=== PATIENT | female | born 1940 | race Caucasian/White ===

== ENCOUNTER 2016-12-26 13:07 | Emergency (ER) | payer MEDICARE, OTHER ==
[~2016-12-26] VITALS: Ht 160 cm; Wt 3.5 kg
[~2016-12-26 13:07] MED LIST: ASPI-664 PO; ATEN50TA PO; ATOR10TA65 PO; CHOL100062 PO; HYDR-3671 PO; LEVO25TA53 PO; VALS320T11 PO
[2016-12-26 13:12] VITALS: Ht 160 cm; Wt 3.5 kg
[2016-12-26] MEDS ORDERED: ALBUTEROL 0.083% (NEB) 2.5 MG/3 ML AMP HHN STA (15:16)
[2016-12-26] MEDS ORDERED: DEXAMETHASONE 4 MG TAB PO ONE (15:30)
--- NOTE | 2016-12-26 16:24 | RADRPT ---
PROCEDURE: XR Chest 1 View. CLINICAL INDICATION: Shortness of breath TECHNIQUE: AP view of the chest was obtained. COMPARISON: August 30, 2016 FINDINGS: The heart size is within normal limits. Calcified atherosclerosis is noted in the aorta. Lungs are hyperexpanded. No consolidations are identified. No pneumothorax is seen. Osseous structures are i ntact. IMPRESSION: Calcified atherosclerosis in the aorta. Hyperexpanded, clear lungs. RPTAT: AA .Cj Barr MD, Date Time Electronically viewed and signed by .Cj Barr MD, MD on 12/26/2016 16:24 .P/
[2016-12-26] MEDS ORDERED: ALBU18HF INHALATION (16:45)
[2016-12-26] MEDS ORDERED: AZIT250T94 PO (16:45)
[2016-12-26] MEDS ORDERED: GENT5DRO28 BOTH EYES (16:47)
--- NOTE | 2016-12-26 16:49 | ERD ---
ER Documentation Chief Complaint Date/Time DATE: 12/26/16 TIME: 16:47 Chief Complaint COUGH, SORE THROAT X 4 DAYS, BILATERAL EYE IRRITATION X 2 DAYS HPI 76-year-old female presents with a productive cough and sore throat for 4 days. She also has bilateral eye redness or discharge. She has a history of intermittent reactive airway disease. She denies any chest pain, vomiting, abdominal pain, shortness of breath. ROS All systems reviewed and are negative except as per history of present illness. Medications Home Meds Active Scripts Gentamicin Sulfate* (Gentamicin Sulfate* Ophth) 0.3% - 5 Ml Drops, 1 DROP BOTH EYES Q4 for 7 Days, EA Prov:CLEVELAND WOLFE MD 12/26/16 Albuterol Sulfate* (Ventolin HFA*) 18 Gm Hfa.aer.ad, 2 PUFF INHALATION Q4H, #1 INHALER Prov:CLEVELAND WOLFE MD 12/26/16 Azithromycin* (Zithromax*) 250 Mg Tablet, 250 MG PO .AleahPACK DIRECTED, #6 TAB TAKE 500 MG (2 TABS) THE FIRST DAY THEN 250 MG (1 TAB) DAYS 2-5 Prov:CLEVELAND WOLFE MD 12/26/16 Hydralazine Hcl* (Hydralazine Hcl*) 25 Mg Tab, 25 MG PO TID for 90 Days, TAB Prov:NIKOLE JACK 09/09/16 Reported Medications Valsartan* (Diovan*) 320 Mg Tablet, 320 MG PO DAILY, TAB 08/30/16 Atorvastatin Calcium (Atorvastatin Calcium) 10 Mg Tablet, 10 MG PO QHS, #30 TAB 08/30/16 Aspirin* (Aspirin* EC) 81 Mg Tablet.dr, 81 MG PO DAILY, TAB 08/30/16 Levothyroxine Sodium* (Levothyroxine Sodium*) 25 Mcg Tablet, 25 MCG PO BEFORE BREAKFAST, #30 TAB 08/30/16 Atenolol* (Atenolol*) 50 Mg Tablet, 50 MG PO BID, #60 TAB 08/30/16 Cholecalciferol* (Vitamin D3*) 1,000 Unit Tablet, 1000 UNIT PO DAILY, TAB 08/30/16 Allergies Allergies: Coded Allergies: Penicillins (Unverified Allergy, Intermediate, RASH, 08/30/16) PMhx/Soc History of Surgery: Yes (HYSTERECTOMY) Anesthesia Reaction: No Hx Neurological Disorder: No Hx Respiratory Disorders: Yes (HX PNEUMONIA) Hx Cardiac Disorders: Yes (HYPERTENSION) Hx Psychiatric Problems: No Hx Miscellaneous Medical Probl: No Hx Alcohol Use: No Hx Substance Use: No Hx Tobacco Use: No Physical Exam Vitals Vital Signs Date Time Temp Pulse Resp B/P Pulse Ox O2 Delivery O2 Flow Rate FiO2 12/26/16 16:08 53 18 98 21 12/26/16 13:12 98.4 67 18 183/80 97 Physical Exam Const: [] Alert, [id number]. Head: Atraumatic Eyes: Slight bilateral scleral redness with slight discharge at the medial canthus bilaterally. There is no periorbital swelling or proptosis. ENT: Normal External Ears, Nose and Mouth. TMs and oropharynx normal. Neck: Full range of motion..~ No meningismus. Resp: Clear to auscultation bilaterally. Wheezy cough without significant wheeze at rest no rales or retractions appreciated. Cardio: Regular rate and rhythm, no murmurs Abd: Soft, non tender, non distended. Normal bowel sounds Skin: No petechiae or rashes Back: No midline or flank tenderness Ext: No cyanosis, or edema Neur: Awake and alert Psych: Normal Mood and Affect Results 24 hrs Current Medications Medications (Trade) Dose Ordered Sig/Kaycee Route PRN Reason Start Time Stop Time Status Last Admin Dose Admin Albuterol (Proventil 0.083% (Neb)) 2.5 mg ONCE STAT HHN 12/26/16 15:16 12/26/16 15:18 DC 12/26/16 16:01 Dexamethasone (Decadron) 8 mg ONCE ONCE PO 12/26/16 15:30 12/26/16 15:31 DC 12/26/16 15:54 Procedures/MDM Chest X-ray 1V Interpreted by me: Soft Tissue: No acute abnormalities Bones: No acute abnormalities Mediastinum/Cardiac Silhouette/Lungs: [No acute abnormalities]. Impression- normal 1 view chest x-ray Patient was given albuterol treatment 1 and Decadron 8 mg of mouth. Patient has URI symptoms with mild wheeze. She will treated with Zithromax and Ventolin and gentamicin ophthalmic solution. There is no evidence of hypoxemia , pneumonia, cardiac chest pain, acute abdomen. Patient should return for new or worsening symptoms with primary doctor this week. The patient was stable with no new complaints during the ER course. Clinically, there is no current evidence to suggest meningitis, sepsis, acute abdomen, pneumonia, acute coronary syndrome, pulmonary embolism, or any other emergent condition appearing to require further evaluation or hospitalization. The patient should certainly return for any new or worsening symptoms per the aftercare instructions. They should otherwise follow-up with her primary care doctor for reevaluation this week. Departure Diagnosis: Primary Impression: Cough Condition: Stable Patient Instructions: Bronchitis With Wheezing (Adult) Additional Instructions: X RAY normal hoy. Cheque otro vez con sotomayor doctor primario en el proximo pelayo or regresa para mas o nueva simptomas. CLEVELAND WOLFE MD Dec 26, 2016 16:48
[2016-12-26 17:14] VITALS: BP 182/77; PULSE 59; RESP 16; TEMP 97.7
== END 2016-12-26 17:19 | disposition home or self-care (01) ==
LOC: FTE 13:07
DX: R05 Cough (principal); I10 Essential (primary) hypertension; E11.9 Type 2 diabetes mellitus without complications; J45.901 Unspecified asthma with (acute) exacerbation; Z79.82 Long term (current) use of aspirin
CPT/HCPCS: 71010; 94664

== ENCOUNTER 2017-04-02 10:19 | Emergency (ER) | payer MEDICARE, OTHER ==
[~2017-04-02] VITALS: Ht 157.5 cm; Wt 73.5 kg
[~2017-04-02 10:19] MED LIST changes: +ALBU18HF INHALATION; +AZIT250T94 PO; +GENT5DRO28 BOTH EYES
[2017-04-02 10:24] VITALS: Ht 157.5 cm; Wt 73.5 kg
[2017-04-02] MEDS ORDERED: morphine 4 MG/ML VIAL IV STA (11:07)
[2017-04-02] MEDS ORDERED: ONDANSETRON 4 MG INJ IV STA (11:07)
[2017-04-02] MEDS ORDERED: LABETALOL HCL 20MG INJ IV ONE (11:30)
[2017-04-02] MEDS ORDERED: SOD CHLORIDE 0.9% 500 ML IV ONE (11:30)
[2017-04-02 12:09] LABS: ADD SCAN DIFF NO
[2017-04-02 12:11] LABS: BASOPHIL # 0.1 10^3/ul (0.0-0.1); BASOPHILS % 0.5 % (0.0-2.0); EOSINOPHILS # 1.8 10^3/ul (0.0-0.5); EOSINOPHILS % 13.7 % (0.0-7.0); LYMPHOCYTES # 1.8 10^3/ul (0.8-2.9); LYMPHOCYTES % 13.2 % (15.0-51.0); MEAN CORPUSCULAR HEMOGLOBIN 30.4 pg (29.0-33.0); MEAN CORPUSCULAR HGB CONC 34.2 g/dl (32.0-37.0); MEAN PLATELET VOLUME 12.9 fl (7.4-10.4); MONOCYTE # 1.1 10^3/ul (0.3-0.9); MONOCYTES % 8.4 % (0.0-11.0); NEUTROPHIL # 8.5 10^3/ul (1.6-7.5); PLATELET COUNT 205 10^3/UL (140-415); RED BLOOD COUNT 4.27 10^6/ul (4.20-5.40); RED CELL DISTRIBUTION WIDTH 12.5 % (11.5-14.5); WHITE BLOOD COUNT 13.2 10^3/ul (4.8-10.8)
[2017-04-02 12:12] LABS: ADD UMIC NO; UR ASCORBIC ACID NEGATIVE (NEGATIVE); UR BILIRUBIN (Dip) NEGATIVE (NEGATIVE); UR BLOOD (Dip) NEGATIVE (NEGATIVE); UR CLARITY CLEAR (CLEAR); UR COLOR YELLOW (YELLOW); UR GLUCOSE (Dip) NEGATIVE (NEGATIVE); UR KETONES (Dip) NEGATIVE (NEGATIVE); UR LEUKOCYTE ESTERASE (Dip) NEGATIVE Leu/ul (NEGATIVE); UR NITRITE (Dip) NEGATIVE (NEGATIVE); UR SPECIFIC GRAVITY (Dip) 1.013 (1.003-1.030); UR TOTAL PROTEIN (Dip) NEGATIVE (NEGATIVE); UR UROBILINOGEN (Dip) NEGATIVE (NEGATIVE)
--- NOTE | 2017-04-02 12:32 | RADRPT ---
PROCEDURE: CT Abdomen and Pelvis without intravenous contrast. CLINICAL INDICATION: Left abdominal pain . TECHNIQUE: CT scan of the abdomen and pelvis without intravenous contrast was performed on a multi -slice CT scanner. Coronal and sagittal reformatted images were obtained from the axial source image s. Images were reviewed on a high-resolution PACS workstation. Total DLP = 808.7 mGy-cm. CTDIvol = 14.5 mGy. One or more of the following dose reduction techniques were used: Automated exposure control. Adjustment of the mA and/or kV according to patient size. Use of iterative reconstruction technique. COMPARISON: 02/10/2016 FINDINGS: CT abdomen and pelvis: The lung bases clear of infiltrates or effusions. There is focal scarring or atelectasis seen in th e left lingula unchanged.. The heart size is normal in size. The liver is normal in size and densi ty without focal mass or intrahepatic biliary dilatation. The spleen is normal in size and homogene ous in density. The pancreas as visualized is normal. The gallbladder shows no evidence of stone s or distension . The adrenal glands are normal. The kidneys are symmetrically unremarkable. No u rolithiasis, obstructive uropathy, or solid mass lesion is seen. The stomach is partially collapsed, but is grossly unremarkable. The small bowels are unremarkable. The colon and rectum shows extensive diverticulosis along the left and sigmoid colon. There is foca l brandyn colonic inflammation and stranding seen in the mid left colon consistent with diverticulitis. . There is no evidence of extraluminal gas or fluid collection. There is no evidence of appendicitis .. The uterus has been removed.. The bladder is normal. There is no abdominal or pelvic adenopathy, free fluid, free air, mass or mesenteric inflammation. The aorta is normal in caliber with calcific atherosclerosis . The osseous structures showing degen erative enthesopathy of the spine. No osteolytic or osteoblastic lesions are identified. The soft t issues are within normal limits. Lack of IV and oral contrast limits sensitivity of exam. IMPRESSION: 1. Acute diverticulitis at the mid left colon. No evidence of extraluminal gas or fluid collection . RPTAT: HJPL .Rodrick Greenfield MD, MD Date Time Electronically viewed and signed by .Rodrick Greenfield MD, MD on 04/02/2017 12:32 .L/
[2017-04-02 12:33] LABS: INR 1.06; PROTIME 13.8 Sec (12.2-14.2); PT RATIO 1.1
[2017-04-02 12:34] LABS: PARTIAL THROMBOPLASTIN TIME 29.2 Sec (25.0-35.0)
[2017-04-02 12:37] LABS: ALANINE AMINOTRANSFERASE 22 IU/L (13-69); ALBUMIN 4.9 g/dl (3.3-4.9); ALBUMIN/GLOBULIN RATIO 1.81; ALKALINE PHOSPHATASE 91 IU/L (42-121); ANION GAP 22 (8-16); ASPARTATE AMINO TRANSFERASE 26 IU/L (15-46); BILIRUBIN,INDIRECT 0.6 mg/dl (0-1.1); BILIRUBIN,TOTAL 0.6 mg/dl (0.2-1.3); BLOOD UREA NITROGEN 12 mg/dl (7-20); CALCIUM 9.7 mg/dl (8.4-10.2); CARBON DIOXIDE 26 mmol/L (21-31); CHLORIDE 94 mmol/L (97-110); CREATININE 0.82 mg/dl (0.44-1.00); GLUCOSE 131 mg/dl (70-220); POTASSIUM 4.2 mmol/L (3.5-5.1); SODIUM 138 mmol/L (135-144); TOTAL PROTEIN 7.6 g/dl (6.1-8.1)
[2017-04-02 13:00] LABS: TROPONIN-I < 0.012 ng/ml (0.00-0.12)
[2017-04-02] MEDS ORDERED: metroNIDAZOLE 500 MG/NS (PMX) 100 ML IVPB ONE (14:00)
[2017-04-02] MEDS ORDERED: CEFTRIAXONE 1 GM/50 ML (PMX) 50 ML IVPB ONE (14:00)
[2017-04-02] MEDS ORDERED: KETOROLAC 15 MG INJ IV STA (15:01)
[2017-04-02] MEDS ORDERED: METOCLOPRAMIDE 10 MG INJ IV ONE (15:30)
[2017-04-02] MEDS ORDERED: morphine 10 MG INJ IV ONE (15:30)
[2017-04-02 15:32] VITALS: BP 142/53; PULSE 62; RESP 18
[2017-04-02] MEDS ORDERED: NAPR-685 PO (16:49)
[2017-04-02] MEDS ORDERED: CIPR500T4 PO (16:49)
[2017-04-02] MEDS ORDERED: HYDR-902 PO (16:49)
[2017-04-02] MEDS ORDERED: METR500T PO (16:49)
[2017-04-02] MEDS ORDERED: METO10TA92 PO (16:49)
[2017-04-02] MEDS ORDERED: ONDA4TAB14 PO (16:49)
[2017-04-02] MEDS ORDERED: POLY17PO6 PO (16:50)
--- NOTE | 2017-04-02 16:59 | ERD ---
ER Documentation Chief Complaint Date/Time DATE: 04/02/17 TIME: 16:54 Chief Complaint ABDOMINAL PAIN WITH HIGH BLOOD PRESSURE HPI 76-year-old female with abdominal pain that is left lower quadrant. She is also had nausea with no vomiting. She denies fever and chills. States that she has had diverticulitis before. Also states that she has had high blood pressure that she thinks is from the pain. No chest pain or shortness of breath. ROS All systems reviewed and are negative except as per history of present illness. Medications Home Meds Active Scripts Polyethylene Glycol* (Miralax*) 17 Gm Powd.pack, 17 GM PO DAILY for CONSTIPATION , #7 Prov:AILINWES 04/02/17 Metoclopramide* (Reglan*) 10 Mg Tablet, 10 MG PO Q6H Y for NAUSEA AND OR VOMITING, #10 TAB Prov:AILINWES 04/02/17 Ondansetron (Ondansetron Odt) 4 Mg Tab.rapdis, 4 MG PO Q6H Y for NAUSEA AND/OR VOMITING, #10 TAB Prov:AILINWES 04/02/17 Naproxen* (Naproxen*) 375 Mg Tablet, 375 MG PO BID Y for PAIN, #10 TAB Prov:AILINWES 04/02/17 Hydrocodone/Acetaminophen ([place] 10-325 Tablet) 1 Each Tablet, 1 EACH PO Q6, # 20 TAB Prov:AILINEWS 04/02/17 Metronidazole* (Flagyl*) 500 Mg Tablet, 500 MG PO TID for 14 Days, TAB Prov:WES PARISI DO 04/02/17 Ciprofloxacin Hcl* (Ciprofloxacin Hcl*) 500 Mg Tablet, 500 MG PO BID for 14 Days , TAB Prov:AILINWES 04/02/17 Gentamicin Sulfate* (Gentamicin Sulfate* Ophth) 0.3% - 5 Ml Drops, 1 DROP BOTH EYES Q4 for 7 Days, EA Prov:CLEVELAND WOLFE MD 12/26/16 Albuterol Sulfate* (Ventolin HFA*) 18 Gm Hfa.aer.ad, 2 PUFF INHALATION Q4H, #1 INHALER Prov:CLEVELAND WOLFE MD 12/26/16 Azithromycin* (Zithromax*) 250 Mg Tablet, 250 MG PO .ALEXANDRA DIRECTED, #6 TAB TAKE 500 MG (2 TABS) THE FIRST DAY THEN 250 MG (1 TAB) DAYS 2-5 Prov:CLEVELAND WOLFE MD 12/26/16 Hydralazine Hcl* (Hydralazine Hcl*) 25 Mg Tab, 25 MG PO TID for 90 Days, TAB Prov:VINOD JACKBIR 09/09/16 Reported Medications Valsartan* (Diovan*) 320 Mg Tablet, 320 MG PO DAILY, TAB 08/30/16 Atorvastatin Calcium (Atorvastatin Calcium) 10 Mg Tablet, 10 MG PO QHS, #30 TAB 08/30/16 Aspirin* (Aspirin* EC) 81 Mg Tablet.dr, 81 MG PO DAILY, TAB 08/30/16 Levothyroxine Sodium* (Levothyroxine Sodium*) 25 Mcg Tablet, 25 MCG PO BEFORE BREAKFAST, #30 TAB 08/30/16 Atenolol* (Atenolol*) 50 Mg Tablet, 50 MG PO BID, #60 TAB 08/30/16 Cholecalciferol* (Vitamin D3*) 1,000 Unit Tablet, 1000 UNIT PO DAILY, TAB 08/30/16 Allergies Allergies: Coded Allergies: Penicillins (Unverified Allergy, Intermediate, RASH, 08/30/16) PMhx/Soc History of Surgery: Yes (HYSTERECTOMY) Anesthesia Reaction: No Hx Neurological Disorder: No Hx Respiratory Disorders: Yes (HX PNEUMONIA) Hx Cardiac Disorders: Yes (HYPERTENSION) Hx Psychiatric Problems: No Hx Miscellaneous Medical Probl: No Hx Alcohol Use: No Hx Substance Use: No Hx Tobacco Use: No Smoking Status: Never smoker Physical Exam Vitals Vital Signs Date Time Temp Pulse Resp B/P Pulse Ox O2 Delivery O2 Flow Rate FiO2 04/02/17 15:32 62 18 142/53 96 Room Air 04/02/17 11:47 62 20 155/63 Room Air 04/02/17 10:24 98.6 67 18 210/83 97 Physical Exam Const: [] Mild distress Head: Atraumatic Eyes: Normal Conjunctiva ENT: Normal External Ears, Nose and Mouth. Neck: Full range of motion..~ No meningismus. Resp: Clear to auscultation bilaterally Cardio: Regular rate and rhythm, no murmurs Abd: Soft, moderate tenderness only in the left lower quadrant very laterally , no guarding rebound, non distended. Normal bowel sounds Skin: No petechiae or rashes Back: No midline or flank tenderness Ext: No cyanosis, or edema Neur: Awake and alert and oriented 3, no focal deficits Psych: Normal Mood and Affect Result Diagram: 04/02/17 1145 04/02/17 1145 Results 24 hrs Laboratory Tests Test 04/02/17 11:45 White Blood Count 13.210^3/ul Red Blood Count 4.2710^6/ul Hemoglobin 13.0g/dl Hematocrit 38.0% Mean Corpuscular Volume 89.0fl Mean Corpuscular Hemoglobin 30.4pg Mean Corpuscular Hemoglobin Concent 34.2g/dl Red Cell Distribution Width 12.5% Platelet Count 25480^3/UL Mean Platelet Volume 12.9fl Neutrophils % 64.0% Lymphocytes % 13.2% Monocytes % 8.4% Eosinophils % 13.7% Basophils % 0.5% Nucleated Red Blood Cells % 0.0/100WBC Neutrophils # 8.510^3/ul Lymphocytes # 1.810^3/ul Monocytes # 1.110^3/ul Eosinophils # 1.810^3/ul Basophils # 0.110^3/ul Nucleated Red Blood Cells # 0.010^3/ul Prothrombin Time 13.8Sec Prothrombin Time Ratio 1.1 INR International Normalized Ratio 1.06 Activated Partial Thromboplast Time 29.2Sec Urine Color YELLOW Urine Clarity CLEAR Urine pH 6.0 Urine Specific Malcolm 1.013 Urine Ketones NEGATIVEmg/dL Urine Nitrite NEGATIVEmg/dL Urine Bilirubin NEGATIVEmg/dL Urine Urobilinogen NEGATIVEmg/dL Urine Leukocyte Esterase NEGATIVELeu/ul Urine Hemoglobin NEGATIVEmg/dL Urine Glucose NEGATIVEmg/dL Urine Total Protein NEGATIVEmg/dl Sodium Level 138mmol/L Potassium Level 4.2mmol/L Chloride Level 94mmol/L Carbon Dioxide Level 26mmol/L Anion Gap 22 Blood Urea Nitrogen 12mg/dl Creatinine 0.82mg/dl Glucose Level 131mg/dl Calcium Level 9.7mg/dl Total Bilirubin 0.6mg/dl Direct Bilirubin 0.00mg/dl Indirect Bilirubin 0.6mg/dl Aspartate Amino Transf (AST/SGOT) 26IU/L Alanine Aminotransferase (ALT/SGPT) 22IU/L Alkaline Phosphatase 91IU/L Troponin I < 0.012ng/ml Total Protein 7.6g/dl Albumin 4.9g/dl Globulin 2.70g/dl Albumin/Globulin Ratio 1.81 Lipase 42U/L Current Medications Medications (Trade) Dose Ordered Sig/Kaycee Route PRN Reason Start Time Stop Time Status Last Admin Dose Admin Sodium Chloride (NS) 500 ml @ 500 mls/hr Q1H ONCE IV 04/02/17 11:30 04/02/17 12:29 DC 04/02/17 11:40 Morphine Sulfate (morphine) 4 mg ONCE STAT IV 04/02/17 11:07 04/02/17 11:10 DC 04/02/17 11:35 Ondansetron HCl (Zofran Inj) 4 mg ONCE STAT IV 04/02/17 11:07 04/02/17 11:10 DC 04/02/17 11:35 Labetalol HCl 20 mg 20 mg ONCE ONCE IV 04/02/17 11:30 04/02/17 11:31 DC Ceftriaxone Sodium 50 ml @ 100 mls/hr ONCE ONCE IVPB 04/02/17 14:00 04/02/17 14:29 DC 04/02/17 15:15 Metronidazole (Flagyl 500 Mg (Pmx)) 100 ml @ 100 mls/hr ONCE ONCE IVPB 04/02/17 14:00 04/02/17 14:59 DC 04/02/17 15:30 Morphine Sulfate (morphine) 6 mg ONCE ONCE IV 04/02/17 15:30 04/02/17 15:31 DC 04/02/17 15:15 Ketorolac Tromethamine (Toradol) 15 mg ONCE STAT IV 04/02/17 15:01 04/02/17 15:02 DC 04/02/17 15:12 Metoclopramide HCl (Reglan) 10 mg ONCE ONCE IV 04/02/17 15:30 04/02/17 15:31 DC 04/02/17 15:30 Procedures/MDM Acute diverticulitis. Patient has no signs of sepsis. She does not want to stay in the hospital. She was given a liter of normal saline as well as Rocephin and Flagyl. Also given morphine for pain then given morphine again with some Toradol. Was given Zofran for nausea which initially resolved her nausea which returned after the morphine and that time point she was given Reglan 10 mg IV which resolved the nausea. Initially very hypertensive. This is only a single reading after single rating her blood pressure decreased and with pain medication decreased even more with no antihypertensives needed in ER. I respect her wishes and discharge her with Cipro and Flagyl. Also discharge with both Zofran and Reglan for nausea. Naproxen and [place] for pain. I am providing with MiraLAX and she said that she has been having trouble having bowel movements on occasion. Return precautions given for any fevers or severe abdominal pain. CT abdomen pelvis interpretation: Acute diverticulitis, no obstruction, no free air, no signs of perforation. No fractures EKG interpretation: Normal sinus rhythm rate of 62, left axis deviation, right bundle branch block, no ST or T-wave changes concerning for acute ischemia. Departure Diagnosis: Primary Impression: Diverticulitis Additional Impressions: Hypertension Acute abdominal pain Condition: Stable Patient Instructions: Diverticulitis Referrals: AIDAN DAWKINS MD (PCP) Additional Instructions: Llame al doctor MAANA y bartolome corey JAMILAH PARA DENTRO DE 1-2 MORRIS.Dgale a la secretaria que nosotros le instruimos hacer esta jamilah.Avise o llame si sotomayor condicin se empeora antes de la jamilah. Regresa aqui si peor o no mejor. WES PARISI DO Apr 02, 2017 16:59
== END 2017-04-02 17:29 | disposition home or self-care (01) ==
LOC: E/R 10:19
DX: K57.32 Diverticulitis of large intestine without perforation or abscess without bleeding (principal); R40.2252 Coma scale, best verbal response, oriented, at arrival to emergency department; I10 Essential (primary) hypertension; R11.0 Nausea; R40.2142 Coma scale, eyes open, spontaneous, at arrival to emergency department; R40.2362 Coma scale, best motor response, obeys commands, at arrival to emergency department; Z79.82 Long term (current) use of aspirin
CPT/HCPCS: 36415; 74176; 80053; 81003; 83690; 84484; 85025; 85610; 85730; 93005; 96361; 96365; 96375; 96376; 99285; J0696; J1885; J2270; J2405; J2765; J7040

== ENCOUNTER 2017-06-30 18:19 | Inpatient (IN) | payer MEDICARE, OTHER ==
[~2017-06-30] VITALS: Ht 157.5 cm; Wt 73.0 kg
[~2017-06-30 18:19] MED LIST changes: +CIPR500T4 PO; +HYDR-902 PO; +METO10TA92 PO; +METR500T PO; +NAPR-685 PO; +ONDA4TAB14 PO; +POLY17PO6 PO
[2017-06-30] MEDS ORDERED: SOD CHLORIDE 0.9% 1,000 ML IV STA (19:57)
[2017-06-30] MEDS ORDERED: ONDANSETRON 4 MG INJ IV STA (19:57)
[2017-06-30] MEDS ORDERED: HYDROmorphONE 1 MG/ML SYG IV STA (19:57)
[2017-06-30 20:18] LABS: ABNORMAL IP MESSAGE 1; HEMATOCRIT 38.7 % (37.0-47.0); HEMOGLOBIN 12.9 g/dl (12.0-16.0); MEAN CORPUSCULAR HEMOGLOBIN 30.2 pg (29.0-33.0); MEAN CORPUSCULAR HGB CONC 33.3 g/dl (32.0-37.0); MEAN CORPUSCULAR VOLUME 90.6 fl (82.0-101.0); MEAN PLATELET VOLUME 11.8 fl (7.4-10.4); PLATELET COUNT 227 10^3/UL (140-415); RED BLOOD COUNT 4.27 10^6/ul (4.20-5.40); RED CELL DISTRIBUTION WIDTH 12.9 % (11.5-14.5); WHITE BLOOD COUNT 10.5 10^3/ul (4.8-10.8)
[2017-06-30 20:25] LABS: ADD UMIC YES; UR ASCORBIC ACID NEGATIVE (NEGATIVE); UR BACTERIA FEW /HPF (NONE SEEN); UR BILIRUBIN (Dip) NEGATIVE (NEGATIVE); UR BLOOD (Dip) NEGATIVE (NEGATIVE); UR CLARITY CLEAR (CLEAR); UR COLOR YELLOW (YELLOW); UR GLUCOSE (Dip) NEGATIVE (NEGATIVE); UR KETONES (Dip) NEGATIVE (NEGATIVE); UR LEUKOCYTE ESTERASE (Dip) TRACE Leu/ul (NEGATIVE); UR NITRITE (Dip) NEGATIVE (NEGATIVE); UR RBC 0 /HPF (0-5); UR SPECIFIC GRAVITY (Dip) 1.011 (1.003-1.030); UR TOTAL PROTEIN (Dip) NEGATIVE (NEGATIVE); UR UROBILINOGEN (Dip) NEGATIVE (NEGATIVE)
[2017-06-30 20:26] LABS: POSITIVE DIFF @See below
[2017-06-30 20:35] LABS: ALBUMIN 4.6 g/dl (3.3-4.9); ALBUMIN/GLOBULIN RATIO 1.35; BILIRUBIN,INDIRECT 0.3 mg/dl (0-1.1); BILIRUBIN,TOTAL 0.3 mg/dl (0.2-1.3); CALCIUM 9.5 mg/dl (8.4-10.2); CREATININE 0.94 mg/dl (0.44-1.00)
[2017-06-30] MEDS ORDERED: METOCLOPRAMIDE 10 MG INJ IV ONE (21:30)
--- NOTE | 2017-06-30 21:35 | ERA ---
ER Documentation Chief Complaint Date/Time DATE: 06/30/17 TIME: 21:31 Chief Complaint Complains of pelvic pain x 3 days HPI This is a 77-year-old female who complains of some left lower quadrant pain described as sharp over the past 4 days. She is intermittent sharp stabbing pain in the left flank and left lower quadrant. No hematuria or dysuria but says the pain is much worse when she tries to void. No fever no chest pain shortness of breath. No symptoms of this in the past ROS All systems reviewed and are negative except as per history of present illness. Medications Home Meds Active Scripts Hydrocodone/Acetaminophen ([place] 5-325 Tablet) 1 Each Tablet, 1 TAB PO Q6H Y for PAIN, #20 TAB Prov:FERCHO BERNARD DO 06/30/17 Metronidazole* (Flagyl*) 500 Mg Tablet, 500 MG PO TID for 10 Days, TAB Prov:FERCHO BERNARD DO 06/30/17 Ciprofloxacin Hcl* (Ciprofloxacin Hcl*) 500 Mg Tablet, 500 MG PO BID for 10 Days , TAB Prov:FERCHO BERNARD DO 06/30/17 Ondansetron (Ondansetron Odt) 4 Mg Tab.rapdis, 4 MG PO Q6H Y for NAUSEA AND/OR VOMITING, #10 TAB Prov:FERCHO BERNARD DO 06/30/17 Polyethylene Glycol* (Miralax*) 17 Gm Powd.pack, 17 GM PO DAILY for CONSTIPATION , #7 Prov:WES PARISI DO 04/02/17 Metoclopramide* (Reglan*) 10 Mg Tablet, 10 MG PO Q6H Y for NAUSEA AND OR VOMITING, #10 TAB Prov:WES PARISI DO 04/02/17 Ondansetron (Ondansetron Odt) 4 Mg Tab.rapdis, 4 MG PO Q6H Y for NAUSEA AND/OR VOMITING, #10 TAB Prov:WES PARISI DO 04/02/17 Naproxen* (Naproxen*) 375 Mg Tablet, 375 MG PO BID Y for PAIN, #10 TAB Prov:WES PARISI DO 04/02/17 Hydrocodone/Acetaminophen ([place] 10-325 Tablet) 1 Each Tablet, 1 EACH PO Q6, # 20 TAB Prov:WES PARISI DO 04/02/17 Metronidazole* (Flagyl*) 500 Mg Tablet, 500 MG PO TID for 14 Days, TAB Prov:WES PARISI DO 04/02/17 Ciprofloxacin Hcl* (Ciprofloxacin Hcl*) 500 Mg Tablet, 500 MG PO BID for 14 Days , TAB Prov:WES PARISI DO 04/02/17 Gentamicin Sulfate* (Gentamicin Sulfate* Ophth) 0.3% - 5 Ml Drops, 1 DROP BOTH EYES Q4 for 7 Days, EA Prov:CLEVELAND WOLFE MD 12/26/16 Albuterol Sulfate* (Ventolin HFA*) 18 Gm Hfa.aer.ad, 2 PUFF INHALATION Q4H, #1 INHALER Prov:CLEVELAND WOLFE MD 12/26/16 Azithromycin* (Zithromax*) 250 Mg Tablet, 250 MG PO .ZPACK DIRECTED, #6 TAB TAKE 500 MG (2 TABS) THE FIRST DAY THEN 250 MG (1 TAB) DAYS 2-5 Prov:CLEVELAND WOLFE MD 12/26/16 Hydralazine Hcl* (Hydralazine Hcl*) 25 Mg Tab, 25 MG PO TID for 90 Days, TAB Prov:NIKOLE JACK 09/09/16 Reported Medications Valsartan* (Diovan*) 320 Mg Tablet, 320 MG PO DAILY, TAB 08/30/16 Atorvastatin Calcium (Atorvastatin Calcium) 10 Mg Tablet, 10 MG PO QHS, #30 TAB 08/30/16 Aspirin* (Aspirin* EC) 81 Mg Tablet.dr, 81 MG PO DAILY, TAB 08/30/16 Levothyroxine Sodium* (Levothyroxine Sodium*) 25 Mcg Tablet, 25 MCG PO BEFORE BREAKFAST, #30 TAB 08/30/16 Atenolol* (Atenolol*) 50 Mg Tablet, 50 MG PO BID, #60 TAB 08/30/16 Cholecalciferol* (Vitamin D3*) 1,000 Unit Tablet, 1000 UNIT PO DAILY, TAB 08/30/16 Allergies Allergies: Coded Allergies: Penicillins (Unverified Allergy, Intermediate, RASH, 08/30/16) PMhx/Soc History of Surgery: Yes (Hysterectomy) Anesthesia Reaction: No Hx Neurological Disorder: No Hx Respiratory Disorders: Yes (PNA) Hx Cardiac Disorders: Yes (HTN) Hx Psychiatric Problems: No Hx Miscellaneous Medical Probl: Yes (DM,Hypothyroidism) Hx Alcohol Use: No Hx Substance Use: No Hx Tobacco Use: No Smoking Status: Never smoker FmHx Family History: No coronary disease Physical Exam Vitals Vital Signs Date Time Temp Pulse Resp B/P Pulse Ox O2 Delivery O2 Flow Rate FiO2 06/30/17 21:44 98.1 100 20 153/79 97 Room Air 06/30/17 20:00 98.1 60 20 153/62 100 Room Air 06/30/17 18:54 189/76 06/30/17 18:28 98.1 66 20 190/76 95 Physical Exam Const: Well-developed, well-nourished Head: Atraumatic, normocephalic Eyes: Normal Conjunctiva, PERRLA, EOMI, normal sclera, no nystagmus ENT: Normal External Ears, Nose and Mouth, moist mucus membranes. Neck: Full range of motion. No meningismus, no lymphadenopathy. Resp: Clear to auscultation bilaterally, no wheezing, rhonchi, rales Cardio: Regular rate and rhythm, no murmurs, S1 S2 present Abd: Soft, mild to moderate left lower quadrant tenderness, non distended. Normal bowel sounds, no guarding or rebound, no pulsitile abdominal masses or bruits Skin: No petechiae or rashes, no ecchymosis , no maculopapular rash Back: No midline or flank tenderness Ext: No cyanosis, or edema, FROM x 4, normal inspection, neurovascularly intact x 4 Neur: Awake and alert, STR 5/5 x 4, sensation intact x 4, no focal findings, cerebellum intact Psych: Normal Mood and Affect Result Diagram: 06/30/17195106/30/171951 Results 24 hrs Laboratory Tests Test 06/30/17 19:52 White Blood Count 10.510^3/ul Red Blood Count 4.2710^6/ul Hemoglobin 12.9g/dl Hematocrit 38.7% Mean Corpuscular Volume 90.6fl Mean Corpuscular Hemoglobin 30.2pg Mean Corpuscular Hemoglobin Concent 33.3g/dl Red Cell Distribution Width 12.9% Platelet Count 37067^3/UL Mean Platelet Volume 11.8fl Segmented Neutrophils % (Manual) 34% Lymphocytes % (Manual) 27% Monocytes % (Manual) 10% Eosinophils % (Manual) 27% Nucleated Red Blood Cells % 0.0/100WBC Absolute Lymphocytes (Manual) 2.810^3/ul Lymphocytes # 2.810^3/ul Monocytes # 1.110^3/ul Absolute Monocytes (Manual) 1.010^3/ul Eosinophils # 2.810^3/ul Basophils # 0.210^3/ul Urine Color YELLOW Urine Clarity CLEAR Urine pH 5.0 Urine Specific [place] 1.011 Urine Ketones NEGATIVEmg/dL Urine Nitrite NEGATIVEmg/dL Urine Bilirubin NEGATIVEmg/dL Urine Urobilinogen NEGATIVEmg/dL Urine Leukocyte Esterase TRACELeu/ul Urine Microscopic RBC 0/HPF Urine Microscopic WBC 2/HPF Urine Bacteria FEW/HPF Urine Hemoglobin NEGATIVEmg/dL Urine Glucose NEGATIVEmg/dL Urine Total Protein NEGATIVEmg/dl Sodium Level 139mmol/L Potassium Level 4.0mmol/L Chloride Level 99mmol/L Carbon Dioxide Level 27mmol/L Anion Gap 17 Blood Urea Nitrogen 19mg/dl Creatinine 0.94mg/dl Glucose Level 168mg/dl Calcium Level 9.5mg/dl Total Bilirubin 0.3mg/dl Direct Bilirubin 0.00mg/dl Indirect Bilirubin 0.3mg/dl Aspartate Amino Transf (AST/SGOT) 19IU/L Alanine Aminotransferase (ALT/SGPT) 22IU/L Alkaline Phosphatase 95IU/L Total Protein 8.0g/dl Albumin 4.6g/dl Globulin 3.40g/dl Albumin/Globulin Ratio 1.35 Current Medications Medications (Trade) Dose Ordered Sig/Kaycee Route PRN Reason Start Time Stop Time Status Last Admin Dose Admin Sodium Chloride (NS) 1,000 ml @ 1,000 mls/hr Q1H STAT IV 06/30/17 19:57 06/30/17 20:56 DC 06/30/17 20:05 Hydromorphone HCl (Dilaudid) 1 mg ONCE STAT IV 06/30/17 19:57 06/30/17 19:59 DC 06/30/17 20:06 Ondansetron HCl (Zofran Inj) 4 mg ONCE STAT IV 06/30/17 19:57 06/30/17 19:59 DC 06/30/17 20:06 Metoclopramide HCl (Reglan) 5 mg ONCE ONCE IV 06/30/17 21:30 06/30/17 21:35 DC 06/30/17 21:41 IV Flush 10 ml 10 ml STK-MED ONCE .ROUTE 06/30/17 21:48 06/30/17 21:49 DC 06/30/17 21:54 Sodium Chloride (NS) 100 ml @ ud STK-MED ONCE .ROUTE 06/30/17 21:48 06/30/17 21:49 DC 06/30/17 21:54 Iohexol (Omnipaque 300mg/ ml) 150 ml STK-MED ONCE .ROUTE 06/30/17 21:48 06/30/17 21:49 DC 06/30/17 21:54 Procedures/MDM PROCEDURE: CT abdomen and pelvis with contrast. CLINICAL INDICATION: Abdominal pain. TECHNIQUE: CT scan of the abdomen and pelvis with contrast was performed after the uneventful intravenous administration of 90 cc of Omnipaque-300. Coronal and sagittal reformatted images were obtained from the axial source images. The total exam CTDI equals 15.9 mGy and the total exam DLP equals 969.88 mGy-cm. One or more of the following dose reduction techniques were used: - Automated exposure control. - Adjustment of the mA and/or kV according to patient size. - Use of iterative reconstruction technique. COMPARISON: CT dated 04/02/2017. FINDINGS: Visualized lower thorax: The visualized lung bases are clear. There are coronary artery calcifications. The visualized heart is otherwise unremarkable. Hepatobiliary system and spleen: The liver is normal in size and density with no focal hepatic lesion identified. There is no intra or extrahepatic biliary ductal dilatation. The gallbladder is unremarkable. The spleen is unremarkable. The pancreas is unremarkable. Adrenal glands and genitourinary system: The adrenal glands are unremarkable. There is an indeterminate 1.7 cm lesion at the midportion of the right kidney. There is no hydronephrosis. The urinary bladder is unremarkable. The uterus is surgically absent. There are no adnexal masses. Gastrointestinal system: There is pancolonic diverticulosis, most pronounced at the sigmoid and descending colon with mild focal wall thickening and questionable subtle inflammatory change at the proximal sigmoid colon, which may reflect mild diverticulitis. There is no evidence of bowel obstruction. The appendix is not identified, but there is no inflammatory process in the right lower quadrant. There is fecalization of the distal small bowel contents, consistent with stasis. Peritoneum, vascular system, lymphatics: There is no free intraperitoneal air or free fluid. There is no mesenteric or retroperitoneal adenopathy. There are atherosclerotic changes of the aorta, which is nonaneurysmal. Musculoskeletal system and soft tissues: There is mild to moderate degenerative enthesopathy at L2-3 with vacuum disc phenomenon at this level. There are no concerning osseous lesions. The soft tissues are unremarkable. IMPRESSION: 1. Pancolonic diverticulosis, most pronounced at the sigmoid and descending colon, with findings as above that may reflect mild diverticulitis at the proximal sigmoid colon. No perforation or focal drainable collection within the abdomen or pelvis. 2. Indeterminate 1.7 cm lesion at the midportion of the right kidney. This can be further characterize a multiphase CT scan or MRI. 3. Coronary artery calcifications and atherosclerotic changes of the aorta. RPTAT: HLBP .Swapnil Rose MD, MD Date Time Electronically viewed and signed by .Swapnil Rose MD, on 06/30/2017 22:57 .P/ CC: FERCHO BERNARD DO Departure Diagnosis: Primary Impression: Diverticulitis Qualified Code: K57.32 - Diverticulitis of large intestine without perforation or abscess without bleeding Condition: Stable FERCHO BERNARD DO Jun 30, 2017 21:34
[2017-06-30] MEDS ORDERED: IOHEXOL 300MG/ML 150 ML BTL ONE (21:48)
[2017-06-30] MEDS ORDERED: SOD CHLORIDE 0.9% 100 ML ONE (21:48)
[2017-06-30 22:15] LABS: BASOPHIL # 0.2 10^3/ul (0.0-0.1); EOSINOPHILS # 2.8 10^3/ul (0.0-0.5); EOSINOPHILS % (M) 27 % (0.0-7.0); LYMPHOCYTES # 2.8 10^3/ul (0.8-2.9); MONOCYTE # 1.1 10^3/ul (0.3-0.9); MONOCYTES % (M) 10 % (0-11)
--- NOTE | 2017-06-30 22:57 | RADRPT ---
PROCEDURE: CT abdomen and pelvis with contrast. CLINICAL INDICATION: Abdominal pain. TECHNIQUE: CT scan of the abdomen and pelvis with contrast was performed after the uneventful intrav enous administration of 90 cc of Omnipaque-300. Coronal and sagittal reformatted images were obtaine d from the axial source images. The total exam CTDI equals 15.9 mGy and the total exam DLP equals 96 9.88 mGy-cm. One or more of the following dose reduction techniques were used: - Automated exposure control. - Adjustment of the mA and/or kV according to patient size. - Use of iterative reconstruction technique. COMPARISON: CT dated 04/02/2017. FINDINGS: Visualized lower thorax: The visualized lung bases are clear. There are coronary artery calcificati ons. The visualized heart is otherwise unremarkable. Hepatobiliary system and spleen: The liver is normal in size and density with no focal hepatic lesi on identified. There is no intra or extrahepatic biliary ductal dilatation. The gallbladder is unrem arkable. The spleen is unremarkable. The pancreas is unremarkable. Adrenal glands and genitourinary system: The adrenal glands are unremarkable. There is an indetermi james 1.7 cm lesion at the midportion of the right kidney. There is no hydronephrosis. The urinary bl adder is unremarkable. The uterus is surgically absent. There are no adnexal masses. Gastrointestinal system: There is pancolonic diverticulosis, most pronounced at the sigmoid and marivel cending colon with mild focal wall thickening and questionable subtle inflammatory change at the pro ximal sigmoid colon, which may reflect mild diverticulitis. There is no evidence of bowel obstructio n. The appendix is not identified, but there is no inflammatory process in the right lower quadrant. There is fecalization of the distal small bowel contents, consistent with stasis. Peritoneum, vascular system, lymphatics: There is no free intraperitoneal air or free fluid. There is no mesenteric or retroperitoneal adenopathy. There are atherosclerotic changes of the aorta, whic h is nonaneurysmal. Musculoskeletal system and soft tissues: There is mild to moderate degenerative enthesopathy at L2- 3 with vacuum disc phenomenon at this level. There are no concerning osseous lesions. The soft tissu es are unremarkable. IMPRESSION: 1. Pancolonic diverticulosis, most pronounced at the sigmoid and descending colon, with findings as above that may reflect mild diverticulitis at the proximal sigmoid colon. No perforation or focal d rainable collection within the abdomen or pelvis. 2. Indeterminate 1.7 cm lesion at the midportion of the right kidney. This can be further character ize a multiphase CT scan or MRI. 3. Coronary artery calcifications and atherosclerotic changes of the aorta. RPTAT: HLBP .Swapnil Rose MD, Date Time Electronically viewed and signed by .Swapnil Rose MD, on 06/30/2017 22:57 .P/
[2017-06-30] MEDS ORDERED: HYDR-906 PO (23:09)
[2017-06-30] MEDS ORDERED: ONDA4TAB14 PO (23:09)
[2017-06-30] MEDS ORDERED: METR500T PO (23:09)
[2017-06-30] MEDS ORDERED: CIPR500T4 PO (23:09)
[2017-06-30 23:31] VITALS: TEMP 98.1
[2017-07-01] VITALS (12 sets, daily range): BP systolic 114–162; BP diastolic 60–72; PULSE 50–126; RESP 18–19; Ht 157.5 cm; Wt 73.0 kg
[2017-07-01] MEDS ORDERED: ONDANSETRON 4 MG INJ IV PRN
[2017-07-01] MEDS ORDERED: DILTIAZEM 25 MG INJ IV ONE
[2017-07-01] MEDS ORDERED: ACETAMINOPHEN 325 MG TAB PO PRN
[2017-07-01] MEDS ORDERED: DILTIAZEM-D5W 125MG/125ML DRIP 125 ML IV SCH ×3 (03:00→12:30)
[2017-07-01 08:48] LABS: CREATININE 0.74 mg/dl (0.44-1.00); POTASSIUM 4.1 mmol/L (3.5-5.1)
[2017-07-01] MEDS ORDERED: GLUCOSE GEL 15 GRAM TUBE BUCCAL PRN (11:00)
[2017-07-01] MEDS ORDERED: DEXTROSE 50% 50 ML SYRINGE IV PRN ×2 (11:00)
[2017-07-01] MEDS ORDERED: GLUCOSE GEL 15 GRAM TUBE PO PRN ×2 (11:00)
[2017-07-01] MEDS ORDERED: GLUCAGON 1 MG INJ IM PRN (11:00)
[2017-07-01] MEDS: INSULIN ASPART [NOVOLOG] 3 ML PEN SC SCH ×3 (11:46→21:00)
[2017-07-01] MEDS ORDERED: ATENOLOL 50 MG TAB PO SCH (12:00)
--- NOTE | 2017-07-01 12:01 | HP ---
Date/Time of Note Date/Time of Note DATE: 07/01/17 TIME: 11:58 Assessment/Plan VTE Prophylaxis VTE Prophylaxis Intervention: other Lines/Catheters [facility] Saline Lock Assessment/Plan Chief Complaint/Hosp Course 1) atrial fibrillation - improved - consult cardiology - monitor on telemetry 2) diverticulitis - IV flagyl 3) diabetes - monitor blood sugar Problems: HPI/ROS Admit Date/Time Admit Date/Time Jun 30, 2017 at 23:59 Hx of Present Illness Patient with hypertension, diabetes comes in the ER with abdominal pain. She was diagnosed with diverticulitis but then developed atrial fibrillation with rapid ventricular rate. Patient never had this before and was admitted and treated with cardiazem drip. This morning, cardiazem drip was stopped because of decreased heart rate but patient will need further workup and evaluation. PMH/Family/Social Past Medical History Medical History: diabetes, hypertension Past Surgical History Past Surgical Hx: other Social History Smoking Status: Never smoker Exam/Review of Systems Vital Signs Vitals Vital Signs Date Time Temp Pulse Resp B/P Pulse Ox O2 Delivery O2 Flow Rate FiO2 07/01/17 11:45 98.2 87 19 161/64 96 07/01/17 00:59 Room Air Intake and Output 06/30/17 06/30/17 07/01/17 15:00 23:00 07:00 Intake Total 100 ml Balance 100 ml Exam Constitutional: well developed Head: atraumatic, normocephalic Neck: supple Respiratory: clear to auscultation Cardiovascular: regular rate and rhythm Gastrointestinal: non-tender, soft Extremities: normal pulses Labs Result Diagram: 06/30/17195107/01/17 0724 Medications Medications Current Medications Diltiazem HCl (Cardizem-D5W 125 Mg/125 ml Drip) 125 ml @ 5 mls/hr TITRATE IV Last administered on 07/01/17t 03:58; Admin Dose 5 MLS/HR; Start 07/01/17 at 03:00 Diagnostic Test (Pha) (Accu-Chek) 1 ea 02 XX ; Start 07/02/17 at 02:00 Diagnostic Test (Pha) (Accu-Chek) 1 ea 02 XX ; Start 07/02/17 at 02:00 Miscellaneous Information 1 ea NOTE XX ; Start 07/01/17 at 11:00 Glucose (Glutose) 15 gm Q15M PRN PO DECREASED GLUCOSE; Start 07/01/17 at 11:00 Glucose (Glutose) 22.5 gm Q15M PRN PO DECREASED GLUCOSE; Start 07/01/17 at 11: 00 Dextrose (D50w Syringe) 25 ml Q15M PRN IV DECREASED GLUCOSE; Start 07/01/17 at 11:00 Dextrose (D50w Syringe) 50 ml Q15M PRN IV DECREASED GLUCOSE; Start 07/01/17 at 11:00 Glucagon (Glucagen) 1 mg Q15M PRN IM DECREASED GLUCOSE; Start 07/01/17 at 11: 00 Glucose (Glutose) 15 gm Q15M PRN BUCCAL DECREASED GLUCOSE; Start 07/01/17 at 11:00 GUADALUPE BAÑUELOS Jul 01, 2017 12:01
[2017-07-01] MEDS ORDERED: ENOXAPARIN 100 MG/ML SYG SC SCH (12:30)
--- NOTE | 2017-07-01 12:35 | CONS ---
Date/Time of Note Date/Time of Note DATE: 07/01/17 TIME: 12:32 Assessment/Plan Assessment/Plan Chief Complaint/Hosp Course 1) afib w rvr 2) diverticulitis Problems: Additional Assessment/Plan 1) dilt gtt 2) metoprolol 3) Lovenox therapeutic 4) will consider eliquis if no procedures anticipated 5) echo 6) troponin 7) will consider digoxin Consultation Date/Type/Reason Admit Date/Time Jun 30, 2017 at 23:59 Date of Consultation: Jul 01, 2017 Type of Consultation: cv Reason for Consultation afib Referring Provider: GUADALUPE BAÑUELOS Hx of Present Illness admitted for abdominal pain, found to have diverticulitis, also found to be in afib w RVR, no chest pain, no sob, some palpitations, no syncope or near syncope Respiratory: no complaints Cardiovascular: no complaints Gastrointestinal: pain Musculoskeletal: no complaints Skin: no complaints Neurologic: no complaints Past Medical History Medical History: diabetes, hypertension Past Surgical History Past Surgical Hx: other Family History Significant Family History: hypertension Social History Smoking Status: Never smoker Exam/Review of Systems Vital Signs Vitals Vital Signs Date Time Temp Pulse Resp B/P Pulse Ox O2 Delivery O2 Flow Rate FiO2 07/01/17 11:45 98.2 87 19 161/64 96 07/01/17 00:59 Room Air Intake and Output 06/30/17 06/30/17 07/01/17 14:59 22:59 06:59 Intake Total 100 ml Balance 100 ml Exam Constitutional: alert, oriented Head: normocephalic Neck: supple Respiratory: clear to auscultation Cardiovascular: irregular rhythm Gastrointestinal: soft Musculoskeletal: nl extremities to inspection Extremities: normal pulses Results Result Diagram: 06/30/17195107/01/17723 Results 24 hrs Laboratory Tests Test 06/30/17 19:52 07/01/17 07:24 07/01/17 11:45 White Blood Count 10.5 # Red Blood Count 4.27 Hemoglobin 12.9 Hematocrit 38.7 Mean Corpuscular Volume 90.6 Mean Corpuscular Hemoglobin 30.2 Mean Corpuscular Hemoglobin Concent 33.3 Red Cell Distribution Width 12.9 Platelet Count 227 Mean Platelet Volume 11.8 H Segmented Neutrophils % (Manual) 34 L Lymphocytes % (Manual) 27 Monocytes % (Manual) 10 Eosinophils % (Manual) 27 H Nucleated Red Blood Cells % 0.0 Absolute Lymphocytes (Manual) 2.8 Lymphocytes # 2.8 Monocytes # 1.1 H Absolute Monocytes (Manual) 1.0 H Eosinophils # 2.8 H Basophils # 0.2 H Urine Color YELLOW Urine Clarity CLEAR Urine pH 5.0 Urine Specific [place] 1.011 Urine Ketones NEGATIVE Urine Nitrite NEGATIVE Urine Bilirubin NEGATIVE Urine Urobilinogen NEGATIVE Urine Leukocyte Esterase TRACE A Urine Microscopic RBC 0 Urine Microscopic WBC 2 Urine Bacteria FEW A Urine Hemoglobin NEGATIVE Urine Glucose NEGATIVE Urine Total Protein NEGATIVE Sodium Level 139 130 L Potassium Level 4.0 4.1 Chloride Level 99 100 Carbon Dioxide Level 27 25 Anion Gap 17 H 9 # Blood Urea Nitrogen 19 17 Creatinine 0.94 0.74 Glucose Level 168 183 Calcium Level 9.5 9.0 Total Bilirubin 0.3 Direct Bilirubin 0.00 Indirect Bilirubin 0.3 Aspartate Amino Transf (AST/SGOT) 19 Alanine Aminotransferase (ALT/SGPT) 22 Alkaline Phosphatase 95 Total Protein 8.0 Albumin 4.6 Globulin 3.40 H Albumin/Globulin Ratio 1.35 Troponin I 0.015 Bedside Glucose 136 Imaging Free Text/Dictation EKG: afib Tele afib w RVR Medications Medications Current Medications Diltiazem HCl (Cardizem-D5W 125 Mg/125 ml Drip) 125 ml @ 5 mls/hr TITRATE IV Last administered on 07/01/17t 03:58; Admin Dose 5 MLS/HR; Start 07/01/17 at 03:00 Diagnostic Test (Pha) (Accu-Chek) 1 ea 02 XX ; Start 07/02/17 at 02:00 Diagnostic Test (Pha) (Accu-Chek) 1 ea 02 XX ; Start 07/02/17 at 02:00 Miscellaneous Information 1 ea NOTE XX ; Start 07/01/17 at 11:00 Glucose (Glutose) 15 gm Q15M PRN PO DECREASED GLUCOSE; Start 07/01/17 at 11:00 Glucose (Glutose) 22.5 gm Q15M PRN PO DECREASED GLUCOSE; Start 07/01/17 at 11: 00 Dextrose (D50w Syringe) 25 ml Q15M PRN IV DECREASED GLUCOSE; Start 07/01/17 at 11:00 Dextrose (D50w Syringe) 50 ml Q15M PRN IV DECREASED GLUCOSE; Start 07/01/17 at 11:00 Glucagon (Glucagen) 1 mg Q15M PRN IM DECREASED GLUCOSE; Start 07/01/17 at 11: 00 Glucose (Glutose) 15 gm Q15M PRN BUCCAL DECREASED GLUCOSE; Start 07/01/17 at 11:00 Atenolol (Tenormin) 50 mg BID PO Last administered on 07/01/17t 12:23; Admin Dose 50 MG; Start 07/01/17 at 12:00 DIANA BONNER MD Jul 01, 2017 12:35
[2017-07-01] MEDS: METOPROLOL 25 MG TAB PO SCH ×2 (14:09→20:55)
[2017-07-01] MEDS ORDERED: DOCU-159 PO (14:30)
[2017-07-01] MEDS ORDERED: CHOL10009 PO (14:30)
[2017-07-01] MEDS ORDERED: METF500T4 PO (14:30)
[2017-07-01] MEDS ORDERED: ATOR20TA38 PO (14:30)
[2017-07-01] MEDS ORDERED: LEVO25TA53 PO (14:30)
[2017-07-01] MEDS ORDERED: ATEN50TA PO (14:30)
[2017-07-01] MEDS ORDERED: ASPI-535 PO (14:30)
[2017-07-01] MEDS ORDERED: AMLO-145 PO (14:30)
[2017-07-01] MEDS ORDERED: VALS320T11 PO (14:30)
[2017-07-01] MEDS: CHOLECALCIFEROL 1,000 UNIT TAB PO SCH (17:22)
[2017-07-01] MEDS: AMLODIPINE 5 MG TAB PO SCH (17:22)
[2017-07-01] MEDS: VALSARTAN 160 MG TAB PO SCH (17:22)
[2017-07-01] MEDS: metFORMIN 500 MG TAB PO SCH (17:23)
[2017-07-01] MEDS: ASPIRIN (EC) 81 MG TAB PO SCH (17:23)
[2017-07-01] MEDS ORDERED: metFORMIN 500 MG TAB PO SCH (18:05)
[2017-07-01] MEDS: ATORVASTATIN 10 MG TAB PO SCH (20:47)
[2017-07-01] MEDS: DOCUSATE SODIUM 100 MG CAP PO SCH (20:47)
[2017-07-01] MEDS: ENOXAPARIN 60 MG/0.6 ML SYG SC SCH (20:48)
[2017-07-02] VITALS (11 sets, daily range): BP systolic 122–168; BP diastolic 60–70; PULSE 49–67; RESP 17–20
[2017-07-02] MEDS: ACCU-CHEK XX SCH ×2 (02:00)
[2017-07-02] MEDS: LEVOTHYROXINE 25 MCG TAB PO SCH (06:05)
[2017-07-02] MEDS: INSULIN ASPART [NOVOLOG] 3 ML PEN SC SCH ×4 (08:00→20:25)
[2017-07-02] MEDS: metFORMIN 500 MG TAB PO SCH ×2 (08:05→17:35)
[2017-07-02] MEDS: DOCUSATE SODIUM 100 MG CAP PO SCH ×2 (08:06→20:24)
[2017-07-02] MEDS: ASPIRIN (EC) 81 MG TAB PO SCH (08:06)
[2017-07-02] MEDS: CHOLECALCIFEROL 1,000 UNIT TAB PO SCH (08:06)
[2017-07-02] MEDS: ENOXAPARIN 60 MG/0.6 ML SYG SC SCH (08:07)
[2017-07-02] MEDS: METOPROLOL 25 MG TAB PO SCH ×3 (08:16→20:24)
[2017-07-02] MEDS: AMLODIPINE 5 MG TAB PO SCH (08:16)
[2017-07-02] MEDS: VALSARTAN 160 MG TAB PO SCH (08:16)
--- NOTE | 2017-07-02 13:02 | PN ---
Date/Time of Note Date/Time of Note DATE: 07/02/17 TIME: 13:01 Assessment/Plan VTE Prophylaxis VTE Prophylaxis Intervention: other Lines/Catheters [facility] Saline Lock Assessment/Plan Chief Complaint/Hosp Course 1) atrial fibrillation - improved - consult cardiology - monitor on telemetry 2) diverticulitis - IV flagyl 3) diabetes - monitor blood sugar Problems: Subjective 24 Hr Interval Summary Free Text/Dictation Patient has no complaints Exam/Review of Systems Vital Signs Vitals Vital Signs Date Time Temp Pulse Resp B/P Pulse Ox O2 Delivery O2 Flow Rate FiO2 07/02/17 12:32 61 07/02/17 12:09 98.6 17 131/61 96 07/01/17 00:59 Room Air Intake and Output 07/01/17 07/01/17 07/02/17 15:00 23:00 07:00 Intake Total 750 ml 550 ml Balance 750 ml 550 ml Exam Constitutional: well developed Head: atraumatic, normocephalic Neck: supple Respiratory: clear to auscultation Cardiovascular: regular rate and rhythm Gastrointestinal: non-tender, soft Extremities: normal pulses Results Result Diagram: 06/30/17195107/01/17 0724 Results 24 hrs Laboratory Tests Test 07/01/17 17:20 07/01/17 19:06 07/01/17 20:02 07/02/17 07:43 Bedside Glucose 159 152 128 Troponin I < 0.012 Test 07/02/17 12:26 Bedside Glucose 133 Medications Medications Current Medications Diagnostic Test (Pha) (Accu-Chek) 1 ea 02 XX ; Start 07/02/17 at 02:00 Diagnostic Test (Pha) (Accu-Chek) 1 ea 02 XX ; Start 07/02/17 at 02:00 Miscellaneous Information 1 ea NOTE XX ; Start 07/01/17 at 11:00 Glucose (Glutose) 15 gm Q15M PRN PO DECREASED GLUCOSE; Start 07/01/17 at 11:00 Glucose (Glutose) 22.5 gm Q15M PRN PO DECREASED GLUCOSE; Start 07/01/17 at 11: 00 Dextrose (D50w Syringe) 25 ml Q15M PRN IV DECREASED GLUCOSE; Start 07/01/17 at 11:00 Dextrose (D50w Syringe) 50 ml Q15M PRN IV DECREASED GLUCOSE; Start 07/01/17 at 11:00 Glucagon (Glucagen) 1 mg Q15M PRN IM DECREASED GLUCOSE; Start 07/01/17 at 11: 00 Glucose (Glutose) 15 gm Q15M PRN BUCCAL DECREASED GLUCOSE; Start 07/01/17 at 11:00 Metoprolol Tartrate (Lopressor) 25 mg TID PO Last administered on 07/02/17 12 :28; Admin Dose 25 MG; Start 07/01/17 at 13:00 Enoxaparin Sodium (Lovenox) 50 mg Q12 SC Last administered on 07/02/17 08:07 ; Admin Dose 50 MG; Start 07/01/17 at 21:00 Amlodipine Besylate (Norvasc) 5 mg DAILY PO Last administered on 07/02/17 08: 16; Admin Dose 5 MG; Start 07/01/17 at 15:00 Aspirin (Halfprin) 81 mg DAILY PO Last administered on 07/02/17 08:06; Admin Dose 81 MG; Start 07/01/17 at 15:00 Atorvastatin Calcium (Lipitor) 10 mg QHS PO Last administered on 07/01/17 20: 47; Admin Dose 10 MG; Start 07/01/17 at 21:00 Cholecalciferol (Vitamin D) 1,000 unit DAILY PO Last administered on 08:06; Admin Dose 1,000 UNIT; Start 07/01/17 at 15:00 Docusate Sodium (Colace) 100 mg BID PO Last administered on 07/02/17 08:06; Admin Dose 100 MG; Start 07/01/17 at 21:00 Valsartan (Diovan) 320 mg DAILY PO Last administered on 07/02/17 08:16; Admin Dose 320 MG; Start 07/01/17 at 15:00 GUADALUPE BAÑUELOS Jul 02, 2017 13:01
--- NOTE | 2017-07-02 14:26 | CONS ---
Date/Time of Note Date/Time of Note DATE: 07/02/17 TIME: 14:22 Assessment/Plan Assessment/Plan Additional Assessment/Plan Paroxysmal atrial fibrillation, currently sinus rhythm Hypertension Possible diverticulitis -Patient currently sinus rhythm, continue beta-nargis, maintain potassium above 4.0 and magnesium above 2.0. Check echocardiogram. Consultation Date/Type/Reason Admit Date/Time Jun 30, 2017 at 23:59 Initial Consult Date 07/01/17 Type of Consultation: cv Referring Provider: GUADALUPE BAÑUELOS 24 HR Interval Summary Free Text/Dictation Patient denies palpitations, shortness of breath or chest pain, feeling better but complains of constipation currently Exam/Review of Systems Vital Signs Vitals Vital Signs Date Time Temp Pulse Resp B/P Pulse Ox O2 Delivery O2 Flow Rate FiO2 07/02/17 12:32 61 07/02/17 12:09 98.6 17 131/61 96 07/01/17 00:59 Room Air Intake and Output 07/01/17 07/01/17 07/02/17 15:00 23:00 07:00 Intake Total 750 ml 550 ml Balance 750 ml 550 ml Exam No apparent distress Constitutional: alert, oriented Head: normocephalic Respiratory: clear to auscultation, normal air movement Cardiovascular: other (S1-S2 heard), regular rate and rhythm Gastrointestinal: bowel sounds, non-tender, soft Extremities: other (No edema) Results Result Diagram: 06/30/17195107/01/17 0724 Results 24 hrs Laboratory Tests Test 07/01/17 17:20 07/01/17 19:06 07/01/17 20:02 07/02/17 07:43 Bedside Glucose 159 152 128 Troponin I < 0.012 Test 07/02/17 12:26 Bedside Glucose 133 Medications Medications Current Medications Diagnostic Test (Pha) (Accu-Chek) 1 ea 02 XX ; Start 07/02/17 at 02:00 Diagnostic Test (Pha) (Accu-Chek) 1 ea 02 XX ; Start 07/02/17 at 02:00 Miscellaneous Information 1 ea NOTE XX ; Start 07/01/17 at 11:00 Glucose (Glutose) 15 gm Q15M PRN PO DECREASED GLUCOSE; Start 07/01/17 at 11:00 Glucose (Glutose) 22.5 gm Q15M PRN PO DECREASED GLUCOSE; Start 07/01/17 at 11: 00 Dextrose (D50w Syringe) 25 ml Q15M PRN IV DECREASED GLUCOSE; Start 07/01/17 at 11:00 Dextrose (D50w Syringe) 50 ml Q15M PRN IV DECREASED GLUCOSE; Start 07/01/17 at 11:00 Glucagon (Glucagen) 1 mg Q15M PRN IM DECREASED GLUCOSE; Start 07/01/17 at 11: 00 Glucose (Glutose) 15 gm Q15M PRN BUCCAL DECREASED GLUCOSE; Start 07/01/17 at 11:00 Metoprolol Tartrate (Lopressor) 25 mg TID PO Last administered on 07/02/17 12 :28; Admin Dose 25 MG; Start 07/01/17 at 13:00 Enoxaparin Sodium (Lovenox) 50 mg Q12 SC Last administered on 07/02/17 08:07 ; Admin Dose 50 MG; Start 07/01/17 at 21:00 Amlodipine Besylate (Norvasc) 5 mg DAILY PO Last administered on 07/02/17 08: 16; Admin Dose 5 MG; Start 07/01/17 at 15:00 Aspirin (Halfprin) 81 mg DAILY PO Last administered on 07/02/17 08:06; Admin Dose 81 MG; Start 07/01/17 at 15:00 Atorvastatin Calcium (Lipitor) 10 mg QHS PO Last administered on 07/01/17 20: 47; Admin Dose 10 MG; Start 07/01/17 at 21:00 Cholecalciferol (Vitamin D) 1,000 unit DAILY PO Last administered on 08:06; Admin Dose 1,000 UNIT; Start 07/01/17 at 15:00 Docusate Sodium (Colace) 100 mg BID PO Last administered on 07/02/17 08:06; Admin Dose 100 MG; Start 07/01/17 at 21:00 Valsartan (Diovan) 320 mg DAILY PO Last administered on 07/02/17 08:16; Admin Dose 320 MG; Start 07/01/17 at 15:00 Asif Miller DO Jul 02, 2017 14:26
[2017-07-02] MEDS: APIXABAN 5 MG TABLET PO SCH (20:24)
[2017-07-02] MEDS: ATORVASTATIN 10 MG TAB PO SCH (20:24)
[2017-07-03] VITALS (12 sets, daily range): BP systolic 117–150; BP diastolic 56–70; PULSE 53–69; RESP 17–20
[2017-07-03] MEDS: ACCU-CHEK XX SCH ×2 (02:00→03:10)
[2017-07-03] MEDS: LEVOTHYROXINE 25 MCG TAB PO SCH (06:04)
[2017-07-03] MEDS: INSULIN ASPART [NOVOLOG] 3 ML PEN SC SCH ×4 (08:00→20:32)
[2017-07-03] MEDS: VALSARTAN 160 MG TAB PO SCH (08:33)
[2017-07-03] MEDS: metFORMIN 500 MG TAB PO SCH ×2 (08:34→17:11)
[2017-07-03] MEDS: AMLODIPINE 5 MG TAB PO SCH (08:34)
[2017-07-03] MEDS: METOPROLOL 25 MG TAB PO SCH ×3 (08:34→20:26)
[2017-07-03] MEDS: CHOLECALCIFEROL 1,000 UNIT TAB PO SCH (08:34)
[2017-07-03] MEDS: APIXABAN 5 MG TABLET PO SCH ×2 (08:34→20:25)
[2017-07-03] MEDS: DOCUSATE SODIUM 100 MG CAP PO SCH ×2 (08:34→20:32)
[2017-07-03] MEDS: ASPIRIN (EC) 81 MG TAB PO SCH (08:34)
--- NOTE | 2017-07-03 10:42 | PN ---
Date/Time of Note Date/Time of Note DATE: 07/03/17 TIME: 10:37 Assessment/Plan VTE Prophylaxis VTE Prophylaxis Intervention: SCD's Lines/Catheters IV [facility] [place] [facility] Assessment/Plan Chief Complaint/Hosp Course Patient denies any chest pain denies shortness of breath, sinus bradycardia at the rate of high 50s on telemetry. Patient tolerates diet well without any nausea and vomiting. Problems: Assessment/Plan -Paroxysmal atrial fibrillation, currently sinus rhythm -Pancolonic diverticula lordosis with possible mild diverticulitis, continue antibiotics. -Hypertension -Diabetes mellitus -Hypo-thyroidism -Diastolic dysfunction with preserved ejection fraction per echo. Further recommendations based on clinical course. Plan of care discussed with Dr. Skelton Exam/Review of Systems Vital Signs Vitals Vital Signs Date Time Temp Pulse Resp B/P Pulse Ox O2 Delivery O2 Flow Rate FiO2 07/03/17 08:32 98.1 17 128/63 95 07/03/17 08:14 63 07/01/17 00:59 Room Air Intake and Output 07/02/17 07/02/17 07/03/17 15:00 23:00 07:00 Intake Total 1000 ml 550 ml Balance 1000 ml 550 ml Exam Constitutional: alert, oriented Head: normocephalic Neck: supple Respiratory: normal air movement Cardiovascular: nl pulses, regular rate and rhythm Gastrointestinal: non-tender, soft Extremities: normal pulses Results Result Diagram: 06/30/17195107/01/17 0724 Results 24 hrs Laboratory Tests Test 07/02/17 12:26 07/02/17 17:32 07/02/17 20:11 07/03/17 08:14 Bedside Glucose 133 121 116 117 Medications Medications Current Medications Diagnostic Test (Pha) (Accu-Chek) 1 ea 02 XX ; Start 07/02/17 at 02:00 Diagnostic Test (Pha) (Accu-Chek) 1 ea 02 XX ; Start 07/02/17 at 02:00 Miscellaneous Information 1 ea NOTE XX ; Start 07/01/17 at 11:00 Glucose (Glutose) 15 gm Q15M PRN PO DECREASED GLUCOSE; Start 07/01/17 at 11:00 Glucose (Glutose) 22.5 gm Q15M PRN PO DECREASED GLUCOSE; Start 07/01/17 at 11: 00 Dextrose (D50w Syringe) 25 ml Q15M PRN IV DECREASED GLUCOSE; Start 07/01/17 at 11:00 Dextrose (D50w Syringe) 50 ml Q15M PRN IV DECREASED GLUCOSE; Start 07/01/17 at 11:00 Glucagon (Glucagen) 1 mg Q15M PRN IM DECREASED GLUCOSE; Start 07/01/17 at 11: 00 Glucose (Glutose) 15 gm Q15M PRN BUCCAL DECREASED GLUCOSE; Start 07/01/17 at 11:00 Metoprolol Tartrate (Lopressor) 25 mg TID PO Last administered on 07/03/17 08 :34; Admin Dose 25 MG; Start 07/01/17 at 13:00 Amlodipine Besylate (Norvasc) 5 mg DAILY PO Last administered on 07/03/17 08: 34; Admin Dose 5 MG; Start 07/01/17 at 15:00 Aspirin (Halfprin) 81 mg DAILY PO Last administered on 07/03/17 08:34; Admin Dose 81 MG; Start 07/01/17 at 15:00 Atorvastatin Calcium (Lipitor) 10 mg QHS PO Last administered on 07/02/17 20: 24; Admin Dose 10 MG; Start 07/01/17 at 21:00 Cholecalciferol (Vitamin D) 1,000 unit DAILY PO Last administered on 08:34; Admin Dose 1,000 UNIT; Start 07/01/17 at 15:00 Docusate Sodium (Colace) 100 mg BID PO Last administered on 07/03/17 08:34; Admin Dose 100 MG; Start 07/01/17 at 21:00 Valsartan (Diovan) 320 mg DAILY PO Last administered on 07/03/17 08:33; Admin Dose 320 MG; Start 07/01/17 at 15:00 Apixaban (Eliquis) 5 mg BID PO Last administered on 07/03/17 08:34; Admin Dose 5 MG; Start 07/02/17 at 21:00 XAVI CORTES Jul 03, 2017 10:42
--- NOTE | 2017-07-03 15:23 | RADRPT ---
Echocardiogram Report Patient Name: DINA JACKMAN Gender: Female Date: 1940 Study Date: 02-Jul-2017 Company Manager: [employer] Location: I Ref. Physician: DIANA BONNER Quality: Adequate Procedures: Transthoracic echocardiogram with 2D, M-Mode, and Doppler examination. Indications: Atrial Fibrillation. 2D/M Mode Doppler Measurement Value Normal Ranges Measurement Value Normal Ranges AoR Diam MM 3.3 cm AV Peak Karan 1.4 m/sec ACS MM 2.0 cm AV Peak PG 8.2 mmHg LVIDd 2D 4.1 3.5 - 5.6 cm AI Peak PG 72.4 mmHg LVIDs 2D 2.8 2.1 - 4.1 cm AI Peak Karan 4.3 m/sec LVPWd 2D 1.3 0.6 - 1.1 cm AI PHT 571.1 msec IVSd 2D 1.4 0.6 - 1.1 cm LVOT Peak Karan 0.9 m/sec EDV 2D 73.7 cm3 LVOT Peak PG 3.6 mmHg ESV 2D 22.3 cm3 MV E Peak Karan 0.7 m/sec LA Dimen 2D 3.1 2.3 - 4.0 cm MV A Peak Karan 1.0 m/sec MV E/A 0.7 MV Decel Time 159 msec MV Decel Burt 4 MV E/A 0.7 Findings Left Ventricle: Normal left ventricular systolic function. Normal left ventricular cavity size. Mild concentric left ventricular hypertrophy. Ejection fraction is visually estimated at 65 %. Tissue Doppler/Mitral Doppler indices are consistent with impaired relaxation (Stage I diastolic dysfunction). Right Ventricle: Normal right ventricular size. Normal right ventricular systolic function. Left Atrium: The left atrium is normal in size. Right Atrium: The right atrium is normal in size. Mitral Valve: Normal appearance and function of the mitral valve with trace physiologic regurgitation. Aortic Valve: Aortic sclerosis without stenosis. Mild aortic valve regurgitation. Tricuspid Valve: Normal appearance of the tricuspid valve. No evidence of tricuspid regurgitation. Pulmonic Valve: Pulmonic valve not well visualized. There is trace pulmonic regurgitation. Pericardium: Normal pericardium with no significant pericardial effusion. Aorta: Normal aortic root. IVC: Normal size and normal respiratory collapse consistent with normal right atrial pressure. Pulmonary Artery: Not well visualized. Conclusions 1.Normal left ventricular systolic function. Normal left ventricular cavity size. Mild concentric left ventricular hypertrophy. Ejection fraction is visually estimated at 65 %. Tissue Doppler/Mitral Doppler indices are consistent with impaired relaxation (Stage I diastolic dysfunction). 2.Normal right ventricular size. Normal right ventricular systolic function. 3.The left atrium is normal in size. 4.The right atrium is normal in size. 5.Aortic sclerosis without stenosis. Mild aortic valve regurgitation. 6.No significant valvular stenosis or regurgitation seen of remaining visualized valves. 7.Normal pericardium with no significant pericardial effusion. Electronically Signed By: Asif Miller 03-Jul-2017 15:22:20 -0700 Patient Name: DINA JACKMAN Study Date: 02-Jul-[id number]
--- NOTE | 2017-07-03 16:27 | CONS ---
Date/Time of Note Date/Time of Note DATE: 07/03/17 TIME: 16:25 Assessment/Plan Assessment/Plan Additional Assessment/Plan Paroxysmal atrial fibrillation, currently sinus rhythm Hypertension Preserved ejection fraction Possible diverticulitis -Patient currently sinus rhythm, continue beta-nargis, anticoagulation, DC aspirin. DC planning Consultation Date/Type/Reason Admit Date/Time Jun 30, 2017 at 23:59 Initial Consult Date 07/01/17 Type of Consultation: cv Referring Provider: GUADALUPE BAÑUELOS 24 HR Interval Summary Free Text/Dictation Feeling better, denies palpitations or shortness of breath Exam/Review of Systems Vital Signs Vitals Vital Signs Date Time Temp Pulse Resp B/P Pulse Ox O2 Delivery O2 Flow Rate FiO2 07/03/17 16:22 98.0 17 125/60 97 07/03/17 16:14 69 07/01/17 00:59 Room Air Intake and Output 07/02/17 07/02/17 07/03/17 15:00 23:00 07:00 Intake Total 1000 ml 550 ml Balance 1000 ml 550 ml Exam No apparent distress Constitutional: alert, oriented Head: normocephalic Respiratory: other (Coarse breath sounds bilaterally, no wheezing) Cardiovascular: other (S1-S2), regular rate and rhythm Gastrointestinal: bowel sounds, non-tender, soft Extremities: edema (Trace) Results Result Diagram: 06/30/17195107/01/17 0724 Results 24 hrs Laboratory Tests Test 07/02/17 17:32 07/02/17 20:11 07/03/17 08:14 07/03/17 11:47 Bedside Glucose 121 116 117 118 Medications Medications Current Medications Diagnostic Test (Pha) (Accu-Chek) 1 ea 02 XX ; Start 07/02/17 at 02:00 Diagnostic Test (Pha) (Accu-Chek) 1 ea 02 XX ; Start 07/02/17 at 02:00 Miscellaneous Information 1 ea NOTE XX ; Start 07/01/17 at 11:00 Glucose (Glutose) 15 gm Q15M PRN PO DECREASED GLUCOSE; Start 07/01/17 at 11:00 Glucose (Glutose) 22.5 gm Q15M PRN PO DECREASED GLUCOSE; Start 07/01/17 at 11: 00 Dextrose (D50w Syringe) 25 ml Q15M PRN IV DECREASED GLUCOSE; Start 07/01/17 at 11:00 Dextrose (D50w Syringe) 50 ml Q15M PRN IV DECREASED GLUCOSE; Start 07/01/17 at 11:00 Glucagon (Glucagen) 1 mg Q15M PRN IM DECREASED GLUCOSE; Start 07/01/17 at 11: 00 Glucose (Glutose) 15 gm Q15M PRN BUCCAL DECREASED GLUCOSE; Start 07/01/17 at 11:00 Metoprolol Tartrate (Lopressor) 25 mg TID PO Last administered on 07/03/17 12 :42; Admin Dose 25 MG; Start 07/01/17 at 13:00 Amlodipine Besylate (Norvasc) 5 mg DAILY PO Last administered on 07/03/17 08: 34; Admin Dose 5 MG; Start 07/01/17 at 15:00 Aspirin (Halfprin) 81 mg DAILY PO Last administered on 07/03/17 08:34; Admin Dose 81 MG; Start 07/01/17 at 15:00 Atorvastatin Calcium (Lipitor) 10 mg QHS PO Last administered on 07/02/17 20: 24; Admin Dose 10 MG; Start 07/01/17 at 21:00 Cholecalciferol (Vitamin D) 1,000 unit DAILY PO Last administered on 08:34; Admin Dose 1,000 UNIT; Start 07/01/17 at 15:00 Docusate Sodium (Colace) 100 mg BID PO Last administered on 07/03/17 08:34; Admin Dose 100 MG; Start 07/01/17 at 21:00 Valsartan (Diovan) 320 mg DAILY PO Last administered on 07/03/17 08:33; Admin Dose 320 MG; Start 07/01/17 at 15:00 Apixaban (Eliquis) 5 mg BID PO Last administered on 07/03/17 08:34; Admin Dose 5 MG; Start 07/02/17 at 21:00 Asif Miller DO Jul 03, 2017 16:27
[2017-07-03] MEDS: metroNIDAZOLE 500 MG TAB GTB SCH ×2 (20:25→23:48)
[2017-07-03] MEDS: ATORVASTATIN 10 MG TAB PO SCH (20:26)
[2017-07-03] MEDS ORDERED: ATORVASTATIN 20 MG TAB PO SCH (21:00)
[2017-07-04] VITALS (10 sets, daily range): BP systolic 110–149; BP diastolic 54–65; PULSE 58–67; RESP 17–20
[2017-07-04] MEDS: ACCU-CHEK XX SCH ×2 (02:00)
[2017-07-04] MEDS: metroNIDAZOLE 500 MG TAB GTB SCH ×3 (05:15→17:23)
[2017-07-04] MEDS: CIPROFLOXACIN 500 MG TAB PO SCH ×2 (05:15→17:22)
[2017-07-04] MEDS: LEVOTHYROXINE 25 MCG TAB PO SCH (06:25)
[2017-07-04] MEDS ORDERED: LEVOTHYROXINE 25 MCG TAB PO SCH (07:00)
[2017-07-04 07:42] LABS: BASOPHIL # 0.1 10^3/ul (0.0-0.1); BASOPHILS % 0.8 % (0.0-2.0); EOSINOPHILS # 1.5 10^3/ul (0.0-0.5); EOSINOPHILS % 17.1 % (0.0-7.0); HEMATOCRIT 39.2 % (37.0-47.0); LYMPHOCYTES % 23.4 % (15.0-51.0); MEAN CORPUSCULAR HEMOGLOBIN 29.3 pg (29.0-33.0); MEAN CORPUSCULAR HGB CONC 33.2 g/dl (32.0-37.0); MEAN CORPUSCULAR VOLUME 88.3 fl (82.0-101.0); MEAN PLATELET VOLUME 11.4 fl (7.4-10.4); MONOCYTE # 0.7 10^3/ul (0.3-0.9); MONOCYTES % 7.6 % (0.0-11.0); NEUTROPHIL # 4.4 10^3/ul (1.6-7.5); NEUTROPHILS % 50.9 % (39.0-77.0); PLATELET COUNT 264 10^3/UL (140-415); RED BLOOD COUNT 4.44 10^6/ul (4.20-5.40); RED CELL DISTRIBUTION WIDTH 12.2 % (11.5-14.5); WHITE BLOOD COUNT 8.6 10^3/ul (4.8-10.8)
[2017-07-04] MEDS: INSULIN ASPART [NOVOLOG] 3 ML PEN SC SCH ×3 (08:00→17:23)
[2017-07-04 08:07] LABS: CALCIUM 9.7 mg/dl (8.4-10.2); CREATININE 0.91 mg/dl (0.44-1.00); POTASSIUM 3.8 mmol/L (3.5-5.1)
[2017-07-04] MEDS: metFORMIN 500 MG TAB PO SCH ×2 (08:31→17:22)
[2017-07-04] MEDS: APIXABAN 5 MG TABLET PO SCH (08:32)
[2017-07-04] MEDS: DOCUSATE SODIUM 100 MG CAP PO SCH (08:32)
[2017-07-04] MEDS: CHOLECALCIFEROL 1,000 UNIT TAB PO SCH (08:32)
[2017-07-04] MEDS: METOPROLOL 25 MG TAB PO SCH (08:33)
[2017-07-04] MEDS: VALSARTAN 160 MG TAB PO SCH (08:34)
[2017-07-04] MEDS: AMLODIPINE 5 MG TAB PO SCH (08:34)
[2017-07-04] MEDS ORDERED: ONDANSETRON 4 MG INJ IV PRN (09:30)
[2017-07-04] MEDS ORDERED: POTASSIUM CHLORIDE (SR) 20 MEQ TAB PO STA (10:04)
--- NOTE | 2017-07-04 10:04 | CONS ---
Date/Time of Note Date/Time of Note DATE: 07/04/17 TIME: 10:03 Assessment/Plan Assessment/Plan Additional Assessment/Plan Paroxysmal atrial fibrillation, currently sinus rhythm Hypertension Preserved ejection fraction Possible diverticulitis -Patient currently sinus rhythm, continue beta-nargis, anticoagulation if no contraindication. Consultation Date/Type/Reason Admit Date/Time Jun 30, 2017 at 23:59 Initial Consult Date 07/01/17 Type of Consultation: cv Referring Provider: GUADALUPE BAÑUELOS 24 HR Interval Summary Free Text/Dictation Denies shortness of breath, palpitations or chest pain Exam/Review of Systems Vital Signs Vitals Vital Signs Date Time Temp Pulse Resp B/P Pulse Ox O2 Delivery O2 Flow Rate FiO2 07/04/17 08:02 98.1 57 17 133/62 96 07/01/17 00:59 Room Air Intake and Output 07/03/17 07/03/17 07/04/17 15:00 23:00 07:00 Intake Total 550 ml 480 ml Output Total 2400 ml Balance -1850 ml 480 ml Exam No apparent distress Constitutional: alert, oriented Head: normocephalic Respiratory: other (Coarse breath sounds bilaterally, no wheezing) Cardiovascular: other (S1-S2 heard), regular rate and rhythm Gastrointestinal: bowel sounds, non-tender, soft Extremities: edema (Trace) Results Result Diagram: 07/04/17 0702 07/04/17 0702 Results 24 hrs Laboratory Tests Test 07/03/17 11:47 07/03/17 17:13 07/03/17 20:31 07/04/17 07:02 Bedside Glucose 118 120 114 White Blood Count 8.6 Red Blood Count 4.44 Hemoglobin 13.0 Hematocrit 39.2 Mean Corpuscular Volume 88.3 Mean Corpuscular Hemoglobin 29.3 Mean Corpuscular Hemoglobin Concent 33.2 Red Cell Distribution Width 12.2 Platelet Count 264 Mean Platelet Volume 11.4 H Neutrophils % 50.9 Lymphocytes % 23.4 Monocytes % 7.6 Eosinophils % 17.1 H Basophils % 0.8 Nucleated Red Blood Cells % 0.0 Neutrophils # 4.4 Lymphocytes # 2.0 Monocytes # 0.7 Eosinophils # 1.5 H Basophils # 0.1 Nucleated Red Blood Cells # 0.0 Sodium Level 135 Potassium Level 3.8 Chloride Level 98 Carbon Dioxide Level 27 Anion Gap 14 Blood Urea Nitrogen 17 Creatinine 0.91 Glucose Level 118 Calcium Level 9.7 Test 07/04/17 07:56 Bedside Glucose 125 Medications Medications Current Medications Diagnostic Test (Pha) (Accu-Chek) 1 ea 02 XX ; Start 07/02/17 at 02:00 Diagnostic Test (Pha) (Accu-Chek) 1 ea 02 XX ; Start 07/02/17 at 02:00 Miscellaneous Information 1 ea NOTE XX ; Start 07/01/17 at 11:00 Glucose (Glutose) 15 gm Q15M PRN PO DECREASED GLUCOSE; Start 07/01/17 at 11:00 Glucose (Glutose) 22.5 gm Q15M PRN PO DECREASED GLUCOSE; Start 07/01/17 at 11: 00 Dextrose (D50w Syringe) 25 ml Q15M PRN IV DECREASED GLUCOSE; Start 07/01/17 at 11:00 Dextrose (D50w Syringe) 50 ml Q15M PRN IV DECREASED GLUCOSE; Start 07/01/17 at 11:00 Glucagon (Glucagen) 1 mg Q15M PRN IM DECREASED GLUCOSE; Start 07/01/17 at 11: 00 Glucose (Glutose) 15 gm Q15M PRN BUCCAL DECREASED GLUCOSE; Start 07/01/17 at 11:00 Amlodipine Besylate (Norvasc) 5 mg DAILY PO Last administered on 07/04/17 08: 34; Admin Dose 5 MG; Start 07/01/17 at 15:00 Atorvastatin Calcium (Lipitor) 10 mg QHS PO Last administered on 07/03/17 20: 26; Admin Dose 10 MG; Start 07/01/17 at 21:00 Cholecalciferol (Vitamin D) 1,000 unit DAILY PO Last administered on 08:32; Admin Dose 1,000 UNIT; Start 07/01/17 at 15:00 Docusate Sodium (Colace) 100 mg BID PO Last administered on 07/04/17 08:32; Admin Dose 100 MG; Start 07/01/17 at 21:00 Valsartan (Diovan) 320 mg DAILY PO Last administered on 07/04/17 08:34; Admin Dose 320 MG; Start 07/01/17 at 15:00 Apixaban (Eliquis) 5 mg BID PO Last administered on 07/04/17 08:32; Admin Dose 5 MG; Start 07/02/17 at 21:00 Metoprolol Tartrate (Lopressor) 25 mg BID PO Last administered on 07/03/17 20 :26; Admin Dose 25 MG; Start 07/03/17 at 21:00 Metronidazole (Flagyl) 500 mg Q6 GTB Last administered on 07/04/17 05:15; Admin Dose 500 MG; Start 07/03/17 at 19:00 Ciprofloxacin (Cipro) 500 mg BID@,18 PO Last administered on 07/04/17 05:15 ; Admin Dose 500 MG; Start 07/04/17 at 06:00 Ondansetron HCl (Zofran Inj) 4 mg Q4H PRN IV NAUSEA AND/OR VOMITING; Start at 09:30 Asif Miller DO Jul 04, 2017 10:04
[2017-07-04] MEDS ORDERED: METR500T GTB (17:35)
[2017-07-04] MEDS ORDERED: VALS160T26 PO (17:35)
[2017-07-04] MEDS ORDERED: METO-448 PO (17:35)
[2017-07-04] MEDS ORDERED: CIPR500T4 PO (17:35)
[2017-07-04] MEDS ORDERED: APIX5TAB PO (17:35)
--- NOTE | 2017-07-04 17:53 | DS ---
Date/Time of Note Date/Time of Note DATE: 07/04/17 TIME: 17:52 Discharge Summary Admission/Discharge Info Admit Date/Time Jun 30, 2017 at 23:59 Discharge Date/Time Patient Condition: Stable Hx of Present Illness Patient with hypertension, diabetes comes in the ER with abdominal pain. She was diagnosed with diverticulitis but then developed atrial fibrillation with rapid ventricular rate. Patient never had this before and was admitted and treated with cardiazem drip. This morning, cardiazem drip was stopped because of decreased heart rate but patient will need further workup and evaluation. Hospital Course -Paroxysmal atrial fibrillation, currently sinus rhythm, continue metoprolol and Eliquis -Pancolonic diverticula lordosis with possible mild diverticulitis, continue antibiotics. -Hypertension -Diabetes mellitus -Hypo-thyroidism -Diastolic dysfunction with preserved ejection fraction per echo. Home Meds Active Scripts Apixaban* (Eliquis*) 5 Mg Tablet, 5 MG PO BID for 30 Days, TAB Prov:XAVI CORTES 07/04/17 Valsartan (Valsartan) 160 Mg Tablet, 320 MG PO DAILY for 30 Days, TAB Prov:EDUARD CORTES07/04/17 Metronidazole* (Flagyl*) 500 Mg Tablet, 500 MG GTB Q6 for 14 Days, TAB Prov:XAVI CORTES 07/04/17 Ciprofloxacin Hcl* (Ciprofloxacin Hcl*) 500 Mg Tablet, 500 MG PO BID@06,18 for 14 Days, TAB Prov:XAVI CORTES 07/04/17 Metoprolol Tartrate* (Lopressor*) 25 Mg Tab, 25 MG PO BID for 30 Days, TAB Prov:XAVI CORTES 07/04/17 Hydrocodone/Acetaminophen ([place] 5-325 Tablet) 1 Each Tablet, 1 TAB PO Q6H Y for PAIN, #20 TAB Prov:FERCHO BERNARD DO 06/30/17 Metronidazole* (Flagyl*) 500 Mg Tablet, 500 MG PO TID for 10 Days, TAB Prov:MRIA BERNARDSTKENDALLS ABetina DO 06/30/17 Ciprofloxacin Hcl* (Ciprofloxacin Hcl*) 500 Mg Tablet, 500 MG PO BID for 10 Days , TAB Prov:FERCHO BERNARD DO 06/30/17 Ondansetron (Ondansetron Odt) 4 Mg Tab.rapdis, 4 MG PO Q6H Y for NAUSEA AND/OR VOMITING, #10 TAB Prov:FERCHO BERNARD DO 06/30/17 Polyethylene Glycol* (Miralax*) 17 Gm Powd.pack, 17 GM PO DAILY for CONSTIPATION , #7 Prov:WES PARISI DO 04/02/17 Metoclopramide* (Reglan*) 10 Mg Tablet, 10 MG PO Q6H Y for NAUSEA AND OR VOMITING, #10 TAB Prov:WES PARISI DO 04/02/17 Ondansetron (Ondansetron Odt) 4 Mg Tab.rapdis, 4 MG PO Q6H Y for NAUSEA AND/OR VOMITING, #10 TAB Prov:WES PARISI 04/02/17 Naproxen* (Naproxen*) 375 Mg Tablet, 375 MG PO BID Y for PAIN, #10 TAB Prov:WES PARISI 04/02/17 Hydrocodone/Acetaminophen ([place] 10-325 Tablet) 1 Each Tablet, 1 EACH PO Q6, # 20 TAB Prov:WES PARISI 04/02/17 Metronidazole* (Flagyl*) 500 Mg Tablet, 500 MG PO TID for 14 Days, TAB Prov:WES PARISI 04/02/17 Ciprofloxacin Hcl* (Ciprofloxacin Hcl*) 500 Mg Tablet, 500 MG PO BID for 14 Days , TAB Prov:WES PARISI 04/02/17 Gentamicin Sulfate* (Gentamicin Sulfate* Ophth) 0.3% - 5 Ml Drops, 1 DROP BOTH EYES Q4 for 7 Days, EA Prov:CLEVELAND WOLFE MD 12/26/16 Albuterol Sulfate* (Ventolin HFA*) 18 Gm Hfa.aer.ad, 2 PUFF INHALATION Q4H, #1 INHALER Prov:CLEVELAND WOLFE MD 12/26/16 Azithromycin* (Zithromax*) 250 Mg Tablet, 250 MG PO .ALEXANDRA DIRECTED, #6 TAB TAKE 500 MG (2 TABS) THE FIRST DAY THEN 250 MG (1 TAB) DAYS 2-5 Prov:CLEVELAND WOLFE MD 12/26/16 Hydralazine Hcl* (Hydralazine Hcl*) 25 Mg Tab, 25 MG PO TID for 90 Days, TAB Prov:NIKOLE JACK 09/09/16 Reported Medications Amlodipine Besylate* (Amlodipine Besylate*) 5 Mg Tablet, 5 MG PO DAILY, #30 TAB 07/01/17 Valsartan* (Diovan*) 320 Mg Tablet, 320 MG PO DAILY, TAB 07/01/17 Aspirin Ec (Aspir 81) 81 Mg Tablet.dr, 81 MG PO DAILY, #30 TAB 07/01/17 Atorvastatin Calcium* (Atorvastatin Calcium*) 20 Mg Tablet, 10 MG PO QHS, #30 TAB 07/01/17 Cholecalciferol (Vitamin D3) 1,000 Unit Capsule, 1000 UNIT PO DAILY, CAP 07/01/17 Atenolol* (Atenolol*) 50 Mg Tablet, 50 MG PO BID, #60 TAB 07/01/17 Docusate Sodium* (Docusate Sodium*) 100 Mg Capsule, 100 MG PO BID, #60 CAP 07/01/17 Levothyroxine Sodium* (Levothyroxine Sodium*) 25 Mcg Tablet, 25 MCG PO BEFORE BREAKFAST, #30 TAB 07/01/17 Metformin Hcl* (Metformin Hcl*) 500 Mg Tablet, 500 MG PO WITH BREAKFAST DINNE, # 30 TAB 07/01/17 Valsartan* (Diovan*) 320 Mg Tablet, 320 MG PO DAILY, TAB 08/30/16 Atorvastatin Calcium (Atorvastatin Calcium) 10 Mg Tablet, 10 MG PO QHS, #30 TAB 08/30/16 Aspirin* (Aspirin* EC) 81 Mg Tablet.dr, 81 MG PO DAILY, TAB 08/30/16 Levothyroxine Sodium* (Levothyroxine Sodium*) 25 Mcg Tablet, 25 MCG PO BEFORE BREAKFAST, #30 TAB 08/30/16 Atenolol* (Atenolol*) 50 Mg Tablet, 50 MG PO BID, #60 TAB 08/30/16 Cholecalciferol* (Vitamin D3*) 1,000 Unit Tablet, 1000 UNIT PO DAILY, TAB 08/30/16 Follow-up Plan Follow-up with PMD in 2 weeks Primary Care Provider Pacheco Minor MD Pending Labs Laboratory Tests Test 07/03/17 20:31 07/04/17 07:02 07/04/17 07:56 10/17/17 12:25 Bedside Glucose 114mg/dL (70-220) 125mg/dL (70-220) 149mg/dL (70-220) White Blood Count 8.610^3/ul (4.8-10.8) Red Blood Count 4.4410^6/ul (4.20-5.40) Hemoglobin 13.0g/dl (12.0-16.0) Hematocrit 39.2% (37.0-47.0) Mean Corpuscular Volume 88.3fl (82.0-101.0) Mean Corpuscular Hemoglobin 29.3pg (29.0-33.0) Mean Corpuscular Hemoglobin Concent 33.2g/dl (32.0-37.0) Red Cell Distribution Width 12.2% (11.5-14.5) Platelet Count 95261^3/UL (140-415) Mean Platelet Volume 11.4fl (7.4-10.4) Neutrophils % 50.9% (39.0-77.0) Lymphocytes % 23.4% (15.0-51.0) Monocytes % 7.6% (0.0-11.0) Eosinophils % 17.1% (0.0-7.0) Basophils % 0.8% (0.0-2.0) Nucleated Red Blood Cells % 0.0/100WBC (0.0-0.0) Neutrophils # 4.410^3/ul (1.6-7.5) Lymphocytes # 2.010^3/ul (0.8-2.9) Monocytes # 0.710^3/ul (0.3-0.9) Eosinophils # 1.510^3/ul (0.0-0.5) Basophils # 0.110^3/ul (0.0-0.1) Nucleated Red Blood Cells # 0.010^3/ul (0.0-0.0) Sodium Level 135mmol/L (135-144) Potassium Level 3.8mmol/L (3.5-5.1) Chloride Level 98mmol/L (97-110) Carbon Dioxide Level 27mmol/L (21-31) Anion Gap 14 (8-16) Blood Urea Nitrogen 17mg/dl (7-20) Creatinine 0.91mg/dl (0.44-1.00) Glucose Level 118mg/dl (70-220) Calcium Level 9.7mg/dl (8.4-10.2) XAVI CORTES Jul 04, 2017 17:53
== END 2017-07-04 18:52 | disposition home or self-care (01) | DRG 309 ==
LOC: E/R 18:19 → MS4 23:59
PROVIDERS: ADMIT Internal Medicine; ATTEND Internal Medicine
DX: I48.0 Paroxysmal atrial fibrillation (principal); K57.32 Diverticulitis of large intestine without perforation or abscess without bleeding; E11.9 Type 2 diabetes mellitus without complications; I11.0 Hypertensive heart disease with heart failure; I50.30 Unspecified diastolic (congestive) heart failure; E03.9 Hypothyroidism, unspecified; Z88.0 Allergy status to penicillin; Z79.82 Long term (current) use of aspirin
CPT/HCPCS: 36415; 74177; 80048; 80053; 81001; 82962; 84439; 84443; 84484; 85025; 93306; 96374; 96375; J1170; J1815; J2405; J2765; J7030; Q9967

== ENCOUNTER 2017-10-17 10:33 | Emergency (ER) | END 2017-10-17 18:30 | disposition home or self-care (01) ==

== ENCOUNTER 2017-12-19 11:32 | Emergency (ER) | END 2017-12-19 13:28 | disposition left against medical advice (07) ==

== ENCOUNTER 2017-12-21 10:17 | Emergency (ER) | END 2017-12-21 15:53 | disposition home or self-care (01) ==

== ENCOUNTER 2018-05-08 10:07 | Emergency (ER) | END 2018-05-08 13:08 | disposition home or self-care (01) ==

== ENCOUNTER → 2018-05-08 | Outpatient (CLI) | END | disposition home or self-care (01) ==

== ENCOUNTER 2019-03-05 13:53 | Emergency (ER) | payer OTHER ==
[~2019-03-05] VITALS: Ht 157.5 cm; Wt 69.0 kg
[~2019-03-05 13:53] MED LIST changes: -ALBU18HF INHALATION; +APIX5TAB PO; -ASPI-664 PO; -ATEN50TA PO; -AZIT250T94 PO; -CHOL100062 PO; -CIPR500T4 PO; +CITA20TA8 PO; +CLOT30CR24 TOP; -GENT5DRO28 BOTH EYES; -HYDR-902 PO; -LEVO25TA53 PO; +LEVO25TA6 PO; +METF500T24 PO; +METO-448 PO; -METO10TA92 PO; -METR500T PO; -NAPR-685 PO; -ONDA4TAB14 PO; -POLY17PO6 PO; -VALS320T11 PO
[2019-03-05 14:08] VITALS: BP 167/82; PULSE 70; RESP 18; Ht 157.5 cm; Wt 69.0 kg
--- NOTE | 2019-03-05 15:49 | ERD ---
ER Documentation Chief Complaint Chief Complaint cough , sore thraot , rt leg pain , no injury HPI 78-year-old female, with history of hypertension, high cholesterol, diabetes and thyroid problems, presents to the emergency department complaining of acute onset this morning of right ankle pain in the absence of any recent trauma. The patient reports also cough, subjective fever, runny nose, sore throat and general malaise. ROS All systems reviewed and are negative except as per history of present illness. Medications Home Meds Active Scripts Guaifenesin-Codeine Phosphate* (Guaifenesin* AC Cough Syrup) 473 Ml Liquid, 5 ML PO QHS PRN for COUGH for 4 Days, #60 ML Prov:AKIL JADE MD 03/05/19 Azithromycin* (Zithromax*) 250 Mg Tablet, 250 MG PO .ZPACK DIRECTED, #6 TAB TAKE 500 MG (2 TABS) THE FIRST DAY THEN 250 MG (1 TAB) DAYS 2-5 Prov:AKIL JADE MD 03/05/19 Acetaminophen* (Tylenol*) 325 Mg Tablet, 2 TAB PO Q6 PRN for PAIN AND OR ELEVATED TEMP, #20 TAB Prov:AKIL JADE MD 03/05/19 Clotrimazole* (Clotrimazole* AF) 1% - 30 Gm Cream.gm., 1 APPLIC TOP BID for 7 Days, TUB Prov:DAVIAN BAUGH PA-C 05/08/18 Reported Medications Citalopram Hydrobromide* (Citalopram Hydrobromide*) 20 Mg Tablet, 20 MG PO DAILY, #30 TAB 12/21/17 Metoprolol Tartrate* (Lopressor*) 25 Mg Tab, 25 MG PO BID, #60 TAB 12/21/17 Metformin Hcl* (Metformin Hcl*) 500 Mg Tablet, 500 MG PO WITH BREAKFAST DINNE, #60 TAB 12/21/17 Levothyroxine Sodium* (Levothyroxine Sodium*) 25 Mcg Tablet, 25 MCG PO BEFORE BREAKFAST, #30 TAB 12/21/17 Hydralazine Hcl* (Hydralazine Hcl*) 25 Mg Tab, 25 MG PO TID, #60 TAB 12/21/17 Atorvastatin Calcium (Atorvastatin Calcium) 10 Mg Tablet, 10 MG PO QHS, #30 TAB 12/21/17 Apixaban* (Eliquis*) 5 Mg Tablet, 5 MG PO BID, TAB 12/21/17 Allergies Allergies: Coded Allergies: Penicillins (Unverified Allergy, Intermediate, RASH, 12/21/17) PMhx/Soc History of Surgery: Yes (Hysterectomy) Anesthesia Reaction: No Hx Neurological Disorder: No Hx Respiratory Disorders: Yes (Pneumonia) Hx Cardiac Disorders: Yes (HTN) Hx Psychiatric Problems: No Hx Miscellaneous Medical Probl: Yes (DIVERTICULITIS) Hx Alcohol Use: No Hx Substance Use: No Hx Tobacco Use: No FmHx Family History: diabetes Physical Exam Vitals Vital Signs Date Temp Pulse Resp B/P (MAP) Pulse Ox O2 O2 Flow FiO2 Time Delivery Rate 03/05/19 98.3 70 18 167/82 98 14:08 (110) Physical Exam Const: No acute distress Head: Atraumatic Eyes: Normal Conjunctiva ENT: Erythematous oropharynx Neck: Full range of motion. No meningismus. Resp: Rhonchi to auscultation bilaterally Cardio: Regular rate and rhythm, no murmurs Abd: Soft, non tender, non distended. Normal bowel sounds Skin: No petechiae or rashes Back: No midline or flank tenderness Ext: Right ankle with normal inspection, no gross deformity, tenderness over the Achilles tendon, full range of motion, patient able to ambulate without difficulty. No cyanosis, or edema Neur: Awake and alert Psych: Normal Mood and Affect Procedures/MDM At the time of discharge, patient with nontoxic appearance, vital signs stable, no respiratory distress. Differential diagnosis include but not limited to: upper vs lower respiratory infection bacterial/viral/fungal. Asthma, COPD, pneumonitis, allergies, GERD. Less likely pulmonary embolism, cardiac related or malignancy, but still is a p ossibility. Physical examination and clinical presentation consistent most likely with viral infection with early superimposed bacterial infection, in regards of the right ankle pain, likely tendinitis, no radiological evidence of fracture or cellulitis. During the ED course the patient remained stable, no new complaints. Treatment options and clinical impression discussed with the patient who agrees with management. The patient is stable to be treated outpatient and will be discharged home. Some side effects of prescribed medications (headache, rash, nausea, vomiting, diarrhea, interactions with other medications) were reviewed. The patient needs to follow up with the primary care provider in the next 48h. If symptoms persist, worsen or new symptoms develop, then patient should return to the ED immediately. Disclaimer: Inadvertent spelling and grammatical errors are likely due to EHR/dictation software use and do not reflect on the overall quality of patient care. Also, please note that the electronic time recorded on this note does not necessarily reflect the actual time of the patient encounter. Departure Diagnosis: Primary Impression: Acute right ankle pain Additional Impression: Acute wheezy bronchitis Condition: Stable Additional Instructions: Muchas allan por [facility] para sotomayor servicio. Esperamos que en sotomayor visita a la charley de emergencia sotomayor problema medico haya sido solucionado y que se sienta mucho mejor. Para estar seguros que sotomayor mejoria sigue en proceso, le pedimos el favor de hacer corey aliyah de seguimiento medico con sotomayor doctor primario en los proximos 2-4 pelayo. Lleve con usted estos documentos y las medicinas recetadas. Si tay sintomas empeoran, NO SE ESPERE, por favor regrese a charley de emergencia INMEDIATAMENTE. En natan que usted no tenga un mdico de atencin primaria: Llame al mdico o clnica comunitaria de referencia que aparece abajo tommy las horas de consultorio para hacer corey aliyah para que le vean. CLINICAS: [facility] [phone] [facility] [phone] [facility] [phone] [facility] [phone] [facility] [phone] [facility]. [phone] [place] Mar 05, 2019 15:49
[2019-03-05] MEDS ORDERED: AZIT250T PO (17:32)
[2019-03-05] MEDS ORDERED: GUAI473L22 PO (17:32)
[2019-03-05] MEDS ORDERED: ACET325T33 PO (17:32)
== END 2019-03-05 17:54 | disposition home or self-care (01) ==
LOC: FTE 13:53
DX: J20.8 Acute bronchitis due to other specified organisms (principal); I10 Essential (primary) hypertension; M25.571 Pain in right ankle and joints of right foot; E11.9 Type 2 diabetes mellitus without complications; Z79.01 Long term (current) use of anticoagulants; Z79.84 Long term (current) use of oral hypoglycemic drugs

== ENCOUNTER 2019-06-02 16:54 | Emergency (ER) | payer OTHER ==
[~2019-06-02] VITALS: Ht 162.6 cm; Wt 69.2 kg
[~2019-06-02 16:54] MED LIST changes: +ACET325T33 PO; +AZIT250T PO; +GUAI473L22 PO; +PANT40TA3 PO
[2019-06-02 17:02] VITALS: Ht 162.6 cm; Wt 69.2 kg
[2019-06-02 21:00] VITALS: BP 129/68; PULSE 64; RESP 20
[2019-06-02] MEDS ORDERED: PANTOPRAZOLE (EC) 40 MG TAB PO ONE (21:00)
== END 2019-06-02 22:00 | disposition home or self-care (01) ==
LOC: E/R 16:54
DX: R10.13 Epigastric pain (principal); R10.11 Right upper quadrant pain; I10 Essential (primary) hypertension; E11.9 Type 2 diabetes mellitus without complications; E03.9 Hypothyroidism, unspecified; Z79.01 Long term (current) use of anticoagulants; Z79.84 Long term (current) use of oral hypoglycemic drugs
CPT/HCPCS: 36415; 76705; 80053; 81003; 83690; 85025